=== PATIENT | female | born 1950 | race Caucasian/White ===

== ENCOUNTER 2018-07-09 10:44 | Emergency (ER) | payer MEDICARE, MEDICAID ==
--- NOTE | 2018-07-09 12:33 | ED Physician Chart ---
ED Chief Complaint/HPI - Patient Information Date Seen:: 07/09/18 Time Seen:: 11:26 Chief Complaint:: knot on right chest History of Present Illness:: knot on right chest s/p fall in shower when the shower chair broke 2 weeks ago. Allergies:: Allergies Allergy/AdvReac Type Severity Reaction Status Date / Time naproxen [From Naprosyn] Allergy Verified 07/09/18 11:23 Penicillins Allergy Verified 07/09/18 11:23 Vitals:: Vital Signs - 8 hr 07/09/18 11:26 Temp 97.9 F HR 63 RR 17 BP 141/42 O2 Sat % 98 Historian:: Patient Review:: Nurse's Note Reviewed, Transfer documents Reviewed ED Review of Systems - Review of Systems General/Constitutional: No fever, No chills, No weight loss, No weakness, No diaphoresis, No edema, No loss of appetite Skin: Bruising, Other (knot on right chest; RLE swelling and erythema.) Head: No headache, No light-headedness Eyes: No loss of vision, No pain, No diplopia ENT: No earache, No nasal drainage, No sore throat, No tinnitus Neck: No neck pain, No swelling, No thyromegaly, No stiffness, No mass noted Cardio Vascular: No chest pain, No palpitations, No PND, No orthopnea, No edema Pulmonary: No SOB, No cough, No sputum, No wheezing GI: No nausea, No vomiting, No diarrhea, No pain, No melena, No hematochezia, No constipation, No hematemesis G/U: No dysuria, No frequency, No hematuria Musculoskeletal: No bone or joint pain, No back pain, No muscle pain Endocrine: No polyuria, No polydipsia Psychiatric: No prior psych history, No depression, No anxiety, No suicidal ideation Hematopoietic: Bruising Allergic/Immuno: No urticaria, No angioedema Neurological: No syncope, No focal symptoms, No weakness, No paresthesia, No headache, No seizure, No dizziness, No confusion, No vertigo ED Past Medical History - Past Medical History Obtainable: No Past Medical History: HTN, DM, Arthritis, Other (cellulitis RLE) Family Medical History - Family Member Brother Ethnicity: Living Status: Still Living Hx Family Diabetes: Yes ED Physical Exam - Physical Examination General/Constitutional: Awake, Well-developed, well-nourished, Alert, No distress, GCS 15, Non-toxic appearing, Ambulatory Head: Atraumatic Eyes: Lids, conjuctiva normal, PERRL, EOMI Other Skin comments:: RLE with some erythema. BLE swelling (stable). Positive calf tenderness on the RLE. Positive RLE José Antonio's. 3+ BLE edema ENMT: External ears, nose nl Neck: Nontender, No nuchal rigidity, No stridor Respiratory: Nl effort/Exclusion, Clear to Auscultation, No Wheeze/Rhonchi/Rales Cardio Vascular: RRR, No murmur, gallop, rubs, NL S1 S2 GI: No tenderness/rebounding/guarding : No CVA tenderness Extremities: Full ROM Other Extremities comments:: RLE with some erythema. BLE swelling (stable). Positive calf tenderness on the RLE. Positive RLE José Antonio's. 3+ BLE edema Neuro/Psych: Alert/oriented, Normal sensory exam, Normal motor strength, Judgement/insight normal, Mood normal, No focal deficits Misc: Normal back, No paraspinal tenderness ED Assessment - Assessment General Assessment: right shoulder and right clavicle xrays read as negative. Vancomycin 1 gram IV given in ER and tolerated. No red man syndrome. Premedicated with Solumedrol 62.5 mg IV. case discussed with Dr. Keith who agreed with me that the patient could be sent back to the facility and maintained on Bactrim DS. ED Septic Shock - . Is Septic Shock (SBP<90, OR Lactate>4 mmol\L) present?: No - <6hrs of presentation: Vital Signs: Vital Signs - 8 hr 18 11:26 Temp 97.9 F HR 63 RR 17 BP 141/42 O2 Sat % 98 ED Reassessment (Disposition) - Reassessment Reassessment Condition:: Improved - Diagnosis Diagnosis:: Right chest hematoma (negative R shoulder and R clavicle xrays) RLE cellulitis (received IV Vancomycin--given prescription for Bactrim DS). - Aftercare/Follow up Instructions Aftercare/Follow-Up Instructions:: Refer to Discharge Instructions Medication Prescribed:: Bactrim DS 1 po bid # 20 - Patient Disposition Discharge/Transfer:: [facility] SNF Condition at Disposition:: Stable, Improved
[2018-07-09 13:01] LABS: LYMPHOCYTE ABSOLUTE 1.2 Th/cmm (1.5-3.0); MEAN PLATELET VOLUME 6.9 fl; MONOCYTE ABSOLUTE 0.3 Th/cmm (0.3-1.0); NEUTROPHILE ABSOLUTE 2.6 Th/cmm (1.8-8.0); WHITE BLOOD COUNT 4.1 Th/cmm (4.8-10.8)
[2018-07-09] MEDS ORDERED: methylPREDNISolone SS 40 mg Vial IVP ONE ×2 (13:02→17:00)
[2018-07-09 13:03] LABS: HEMATOCRIT 40.5 % (41.0-60); HEMOGLOBIN 13.3 gm/dL (12-16); RED BLOOD COUNT 4.92 Mil/cmm (3.80-5.20)
[2018-07-09 13:04] LABS: % LYMPHOCYTES 29.1 % (20.0-50.0); % MONOCYTES 7.6 % (2.0-10.0); % NEUTROPHILS 62.8 % (40.0-80.0); MEAN CELL VOLUME 82.3 fl (81-100); MEAN CORPUSCULAR HGB CONC 32.8 pg (28.0-36.0); PLATELET COUNT 178 Th/cmm (150-400); RED CELL DISTRIBUTION WIDTH 12.8 % (11.5-20.0)
[2018-07-09 13:05] LABS: % BASOPHILS 0.3 % (0.0-2.0); % EOSINOPHILS 0.2 % (0.0-5.0)
[2018-07-09 13:20] LABS: ANION GAP 13.6 (7.0-16.0); BUN - UREA NITROGEN 23 mg/dL (7-25); CALCIUM SERUM 9.8 mg/dL (8.6-10.3); CARBON DIOXIDE 25.7 mEq/L (21.0-31.0); CHLORIDE 102 mEq/L (98-107); CREATININE - SERUM 1.1 mg/dL (0.6-1.2); GFR AFRICAN-AMERICAN > 60.0 ml/min (>90); GFR NON AFRICAN-AMERICAN 52.5 ml/min; GLUCOSE 139 mg/dL (70-105); POTASSIUM SERUM 4.3 mEq/L (3.5-5.1); SODIUM SERUM 137 mEq/L (136-145)
--- NOTE | 2018-07-10 08:36 | Diagnostic Imaging Report ---
Right lower extremity Doppler venous ultrasound exam HISTORY: Pain/swelling Sonographic sector images were obtained through the deep venous systems of the right leg. Associated Doppler data was obtained. The exam demonstrates patency of the common femoral, superficial femoral, popliteal, and posterior tibial veins. Specifically, no thrombus is seen. There are normal compressibility and augmentation responses. IMPRESSION: Negative exam for deep vein thrombophlebitis.
--- NOTE | 2018-07-10 08:48 | Diagnostic Imaging Report ---
Right clavicle (2 views) HISTORY: Pain, trauma No acute bony abnormalities. No fractures. Degenerative hypertrophic bony change noted about the acromioclavicular joint. No dislocation. IMPRESSION: 1. No acute abnormalities 2. Degenerative changes about the acromioclavicular joint
--- NOTE | 2018-07-10 08:55 | Diagnostic Imaging Report ---
Right shoulder (4 views) HISTORY: Pain, trauma No acute bony abnormalities. No fractures. No dislocation. Mild degenerative changes seen about the acromioclavicular joint. IMPRESSION: 1. No acute abnormalities
== END 2018-07-09 15:15 | disposition home or self-care (01) ==
LOC: ER 10:44
DX: S20.211A Contusion of right front wall of thorax, initial encounter (principal); L03.115 Cellulitis of right lower limb; I10 Essential (primary) hypertension; E11.9 Type 2 diabetes mellitus without complications; M19.90 Unspecified osteoarthritis, unspecified site; Z88.0 Allergy status to penicillin; Z88.8 Allergy status to other drugs, medicaments and biological substances; W18.2XXA Fall in (into) shower or empty bathtub, initial encounter; Y93.89 Activity, other specified; Y92.89 Other specified places as the place of occurrence of the external cause; Y99.8 Other external cause status
CPT/HCPCS: 99284; 96365; 96375; 93971; 73000; 73030; 36415; 85025; 80048; 87040 ×2; J3370 ×2; J2930; Z7502

== ENCOUNTER 2018-07-20 19:47 | Inpatient (IN) | payer MEDICARE, MEDICAID ==
--- NOTE | 2018-07-20 20:14 | ED Physician Chart ---
ED Chief Complaint/HPI - Patient Information Date Seen:: 07/20/18 Time Seen:: 20:00 Chief Complaint:: cellulitis right leg History of Present Illness:: Patient's had cellulitis of the right leg last 3 months. She was admitted to [facility] in April for this cellulitis. No recent chills or fever. Patient had a deep vein thrombosis in the right leg 8 weeks ago. An ultrasound was done 10 days ago which showed that the deep vein thrombosis is no longer present. Allergies:: Allergies Allergy/AdvReac Type Severity Reaction Status Date / Time naproxen [From Naprosyn] Allergy Verified 07/09/18 11:23 Penicillins Allergy Verified 07/09/18 11:23 Historian:: Patient Review:: Nurse's Note Reviewed ED Review of Systems - Review of Systems General/Constitutional: No fever, No chills Skin: Skin lesions Head: No headache Eyes: No loss of vision ENT: No earache Neck: No neck pain Cardio Vascular: No chest pain, No palpitations Pulmonary: No SOB GI: No nausea, No diarrhea G/U: No dysuria Musculoskeletal: No bone or joint pain, No back pain, No muscle pain Endocrine: No polyuria, No polydipsia Psychiatric: No prior psych history Hematopoietic: No bruising Allergic/Immuno: No urticaria Neurological: No syncope, No focal symptoms ED Past Medical History - Past Medical History Past Medical History: HTN, DM, Other (borderline diabetes) Family History: HTN Social History: Non Smoker, No Alcohol Surgical History: Appendectomy, Hysterectomy, other (tonsillectomy; left knee) Psychiatricy History: None Medication: Reviewed Family Medical History - Family Member Brother Ethnicity: Living Status: Still Living Hx Family Diabetes: Yes ED Physical Exam - Physical Examination General/Constitutional: Awake, Well-developed, well-nourished, Alert, No distress Head: Atraumatic Eyes: Lids, conjuctiva normal, PERRL Skin: Well hydrated Other Skin comments:: Mild erythema distal third right lower leg ENMT: External ears, nose nl, TM canals nl, Nasal exam nl Other ENMT comments:: 2 out of 4 gum retraction Neck: No nuchal rigidity Respiratory: Nl effort/Exclusion, Clear to Auscultation, No Wheeze/Rhonchi/Rales Cardio Vascular: RRR, No murmur, gallop, rubs, NL S1 S2 GI: No tenderness/rebounding/guarding Other Extremities comments:: 2 out of 4 bilateral pretibial pitting edema Neuro/Psych: No focal deficits ED Labs/Radiology/EKG Results - Lab Results Results: Abnormal Lab Results 07/20/18 07/20/18 07/20/18 20:15 20:15 20:15 WBC 4.5 L RBC 4.75 Hgb 13.3 Hct 39.0 L MCV 82.1 MCH 28.0 MCHC Differential 34.0 RDW 13.1 Plt Count 176 MPV 7.2 Neutrophils % 60.1 Lymphocytes % 30.0 Monocytes % 9.5 Eosinophils % 0.2 Basophils % 0.2 PT 10.6 INR 1.02 PTT (Actin FS) 20.2 L Sodium 137 Potassium 4.9 Chloride 106 Carbon Dioxide 22.3 Anion Gap 13.6 BUN 32 H Creatinine 1.6 H Est GFR ( Amer) 41.2 Est GFR (Non-Af Amer) 34.1 BUN/Creatinine Ratio 20.0 Glucose 176 H Calcium 9.9 Total Bilirubin 0.3 AST 22 ALT 34 Alkaline Phosphatase 55 Total Protein 7.1 Albumin 4.2 Globulin 2.9 Albumin/Globulin Ratio 1.5 Abnormal Lab Results 07/20/18 07/20/18 07/20/18 20:15 20:15 20:15 WBC 4.5 L RBC 4.75 Hgb 13.3 Hct 39.0 L MCV 82.1 MCH 28.0 MCHC Differential 34.0 RDW 13.1 Plt Count 176 MPV 7.2 Neutrophils % 60.1 Lymphocytes % 30.0 Monocytes % 9.5 Eosinophils % 0.2 Basophils % 0.2 PT 10.6 INR 1.02 PTT (Actin FS) 20.2 L Sodium 137 Potassium 4.9 Chloride 106 Carbon Dioxide 22.3 Anion Gap 13.6 BUN 32 H Creatinine 1.6 H Est GFR ( Amer) 41.2 Est GFR (Non-Af Amer) 34.1 BUN/Creatinine Ratio 20.0 Glucose 176 H Calcium 9.9 Total Bilirubin 0.3 AST 22 ALT 34 Alkaline Phosphatase 55 Total Protein 7.1 Albumin 4.2 Globulin 2.9 Albumin/Globulin Ratio 1.5 ED Septic Shock - . Is Septic Shock (SBP<90, OR Lactate>4 mmol\L) present?: No ED Reassessment (Disposition) - Reassessment Reassessment Condition:: Unchanged - Diagnosis Diagnosis:: Cellulitis right lower leg; diabetes; hyperglycemia - Patient Disposition Admitted to:: Med/Surg Spoke to:: Debbie Fraser Admitting Medical Physician:: Debbie Fraser Condition at Disposition:: Stable
[2018-07-20 20:37] LABS: INR 1.02 (0.5-1.4); PROTHROMBIN TIME (TEST) 10.6 SECONDS (9.5-11.5)
[2018-07-20 20:39] LABS: % BASOPHILS 0.2 % (0.0-2.0); % EOSINOPHILS 0.2 % (0.0-5.0); % MONOCYTES 9.5 % (2.0-10.0); % NEUTROPHILS 60.1 % (40.0-80.0); HEMOGLOBIN 13.3 gm/dL (12-16); LYMPHOCYTE ABSOLUTE 1.4 Th/cmm (1.5-3.0); MEAN CELL VOLUME 82.1 fl (81-100); MEAN PLATELET VOLUME 7.2 fl; MONOCYTE ABSOLUTE 0.4 Th/cmm (0.3-1.0); NEUTROPHILE ABSOLUTE 2.7 Th/cmm (1.8-8.0); PLATELET COUNT 176 Th/cmm (150-400); RED BLOOD COUNT 4.75 Mil/cmm (3.80-5.20); RED CELL DISTRIBUTION WIDTH 13.1 % (11.5-20.0); WHITE BLOOD COUNT 4.5 Th/cmm (4.8-10.8)
[2018-07-20 20:41] LABS: ALB/GLOB RATIO 1.5 (1.0-1.8); ALBUMIN 4.2 gm/dL (3.7-5.3); ANION GAP 13.6 (7.0-16.0); BILIRUBIN,TOTAL 0.3 mg/dL (0.3-1.0); CALCIUM SERUM 9.9 mg/dL (8.6-10.3); CARBON DIOXIDE 22.3 mEq/L (21.0-31.0); CREATININE - SERUM 1.6 mg/dL (0.6-1.2); GFR AFRICAN-AMERICAN 41.2 ml/min (>90); GFR NON AFRICAN-AMERICAN 34.1 ml/min; POTASSIUM SERUM 4.9 mEq/L (3.5-5.1); TOTAL PROTEIN,SERUM 7.1 gm/dL (6.0-8.3)
[2018-07-20] MEDS ORDERED: Sodium Chloride 0.9% 1,000 ML IV ONE (22:09)
[2018-07-21 03:20] VITALS: BP 102/48
[2018-07-21 08:01] LABS: % BASOPHILS 0.1 % (0.0-2.0); % EOSINOPHILS 0.3 % (0.0-5.0); % LYMPHOCYTES 25.8 % (20.0-50.0); % MONOCYTES 9.5 % (2.0-10.0); % NEUTROPHILS 64.3 % (40.0-80.0); HEMATOCRIT 35.2 % (41.0-60); HEMOGLOBIN 11.7 gm/dL (12-16); MEAN CELL VOLUME 83.1 fl (81-100); MEAN CORPUSCULAR HEMOGLOBIN 27.6 pg (27.0-31.0); MEAN CORPUSCULAR HGB CONC 33.2 pg (28.0-36.0); MEAN PLATELET VOLUME 6.8 fl; MONOCYTE ABSOLUTE 0.4 Th/cmm (0.3-1.0); NEUTROPHILE ABSOLUTE 2.3 Th/cmm (1.8-8.0); PLATELET COUNT 153 Th/cmm (150-400); RED BLOOD COUNT 4.24 Mil/cmm (3.80-5.20); RED CELL DISTRIBUTION WIDTH 12.9 % (11.5-20.0)
[2018-07-21 08:09] LABS: INR 0.99 (0.5-1.4); PROTHROMBIN TIME (TEST) 10.3 SECONDS (9.5-11.5)
[2018-07-21 08:13] LABS: ANION GAP 10.5 (7.0-16.0); CARBON DIOXIDE 22.7 mEq/L (21.0-31.0); CREATININE - SERUM 1.3 mg/dL (0.6-1.2); GFR AFRICAN-AMERICAN 52.4 ml/min (>90); GFR NON AFRICAN-AMERICAN 43.3 ml/min; POTASSIUM SERUM 5.2 mEq/L (3.5-5.1)
[2018-07-21 08:14] LABS: WHITE BLOOD COUNT 3.7 Th/cmm (4.8-10.8)
[2018-07-21] MEDS ORDERED: VTE Chemical Prophylaxis Screen/Admission MC PRN (10:41)
[2018-07-21] MEDS ORDERED: Levofloxacin IVPB 750mg/150mL Premix Bag IV SCH (15:00)
[2018-07-21] MEDS: Levothyroxine 0.075 Mg Tab PO SCH (17:01)
--- NOTE | 2018-07-21 20:03 | Consultation ---
DATE OF CONSULTATION: 07/21/2018 HEMATOLOGY ONCOLOGY CONSULTATION REFERRING PHYSICIAN: Dr. Fraser. REASON FOR CONSULTATION: Leukopenia. HISTORY OF PRESENT ILLNESS: The patient is a 67-year-old female who was admitted with right leg pain and was found to have cellulitis, started on antibiotics and she was also found to have low white count, therefore, I was asked to evaluate. The patient was recently diagnosed with deep venous thrombosis 6 weeks ago. Apparently, she was started on Lovenox injections in the facility and repeat ultrasound 10 days ago was negative. Repeat ultrasound in our facility was also negative. There are no old records to compare with, with regards to the low white count, and it is unclear how long her leukopenia has been existing. PAST OBSTETRIC HISTORY: Obesity, hypertension, and diabetes. FAMILY HISTORY: Hypertension. SOCIAL HISTORY: Nonsmoker. PAST SURGICAL HISTORY: Appendectomy and hysterectomy. MEDICATIONS: Reviewed. CURRENT MEDICATIONS: Heparin subcutaneous prophylactic dose q.12h., vancomycin, and Synthroid 75 mcg. LABORATORY DATA: White count 3.7, hemoglobin 11.7, platelets 153 with normal differential count. Creatinine 1.3. Liver functions normal. TSH 11.1. PHYSICAL EXAMINATION: GENERAL: The patient is obese. VITAL SIGNS: Stable. NECK: No peripheral lymphadenopathy. CHEST: Good air entry. ABDOMEN: Obese and soft. EXTREMITIES: Edema both lower extremities with erythema in the gris-ankle area and below the knee, more on the right side than left. ASSESSMENT: Leukopenia of unknown duration, could be from B12 or folate deficiency, could be autoimmune, and could be a splenic sequestration. Therefore, I will obtain spleen ultrasound, B12, and folate level, RUPESH with reflex. If the patient is not neutropenic since the neutrophil count is 64%, no intervention is required. I will continue to monitor along with you. Other possibilities are also drug-induced leukopenia from antibiotics. Thank you for the opportunity to participate in the care of this interesting case for you. JOB# [id number]
--- NOTE | 2018-07-21 22:18 | History & Physical ---
ADMIT DATE: 07/21/2018 HISTORY OF PRESENT ILLNESS: The patient is a very well known to me 67-year-old female patient known from [facility]. The patient has history of recurrent cellulitis this time, bilateral leg swelling, and the patient has gained weight in the last 2 months. The patient was treated with Lovenox for DVT of her right leg. The patient apparently had been bruising all over the body. PAST MEDICAL HISTORY: The patient has history of hypertension, diabetes and obesity, sleep apnea. PAST SURGICAL HISTORY: History of tonsillectomy, appendectomy, and hysterectomy. REVIEW OF SYSTEMS: Essentially negative. PHYSICAL EXAMINATION: HEAD: Normal. ENT: Normal. LUNGS: Bilateral rales. CARDIOVASCULAR SYSTEM: S1, S2 heard. EXTREMITIES: Bilateral lower leg swelling as well as tenderness and erythema of the right lower leg. LABORATORY DATA: The patient's white count actually was low at 4.3, hemoglobin 13.3. DIAGNOSES: Severe right leg cellulitis, rule out sepsis, status post history of right deep venous thrombosis, history of severe weight gain recently, hypothyroidism, diabetes, hyperglycemia, and also bruising secondary to Lovenox was made. PLAN: The patient is being admitted and I will go ahead and do a complete workup including coagulation series and will have Dr. Narvaez see the patient and also Infectious Disease, Dr. Daniel Keith see the patient, and I will do a cardiac workup as well. JOB# [id number]
--- NOTE | 2018-07-21 23:30 | Consultation ---
DATE OF CONSULTATION: 07/21/[address] Fraser. HISTORY OF PRESENT ILLNESS: This is a 67-year-old morbidly obese female patient who has been complaining of pain and tenderness in the right leg. The patient was seen in the Emergency Room with cellulitis of the right lower extremity. According to the patient, the patient also had a DVT with anticoagulation. At the present time, the patient has a no DVT with recent venous duplex study. PAST MEDICAL HISTORY: The patient has a right leg cellulitis, hypertension, B12 deficiency, osteoarthritis, hypothyroidism, morbid obesity, appendectomy, tonsillectomy, knee surgery, and hysterectomy. FAMILY HISTORY: Unremarkable. SOCIAL HISTORY: No history of smoking, alcohol abuse. ALLERGIES: No known allergies. PHYSICAL EXAMINATION: VITAL SIGNS: Blood pressure 130/80, pulse 70, and respirations 20. HEAD: Normocephalic. No lumps or bumps. EYES: Pupils equal, reactive to light. Fundi show AV nicking, sclerae white, conjunctivae pink. NECK: Carotid 2+. Normal upstroke. JVD flat. Thyroid not palpable. Lymph nodes not palpable. CHEST: Shows increased AP diameter. No kyphosis, scoliosis. LUNGS: Bilateral bronchovesicular breath sounds. HEART: PMI fifth intercostal space with lateral to midclavicular line. S1, S2. No S3, S4, soft systolic murmur. ABDOMEN: Soft. Liver, spleen not palpable. No organomegaly. Bowel sounds active. NEUROLOGIC: Unremarkable. EXTREMITIES: Pain, tenderness, and swelling of the right lower extremity. CLINICAL IMPRESSION: 1. Cellulitis of the right lower extremity. 2. Hypertension. 3. B12 deficiency. 4. Osteoarthritis. 5. Hypothyroidism. 6. Obesity. 7. Megaloblastic anemia. PLAN: The patient took IV antibiotics. Control the blood pressure. JOB# [id number]
--- NOTE | 2018-07-22 00:54 | Consultation ---
DATE OF CONSULTATION: 07/21/2018 INFECTIOUS DISEASE CONSULTATION REFERRING PHYSICIAN: Miller Fraser M.D. REASON FOR CONSULTATION: Right leg cellulitis. HISTORY OF PRESENT ILLNESS: The patient is a 67-year-old female with past medical history of hypertension, diabetes mellitus type 2, DVT, recently admitted to the ____ [facility] for cellulitis of right leg 3 months ago. The patient was treated and diagnosed to have DVT in right leg. However, the patient has erythema and swelling of the right leg. She came to the ER for further evaluation and management. On initial evaluation, the patient's temperature was 97.6 degree Fahrenheit. The patient was diagnosed with cellulitis again and started on Levaquin and vancomycin. ID consult was called for antibiotic management. PAST MEDICAL HISTORY: Includes hypertension, diabetes mellitus type 2, and DVT. MEDICATIONS: As per medication reconciliation sheet. The patient is currently receiving vancomycin. ALLERGIES: THE PATIENT IS ALLERGIC TO PENICILLIN AND NAPROSYN. SOCIAL HISTORY: The patient lives in a nursing facility. No history of smoking, alcohol, or drug use. FAMILY HISTORY: Hypertension. REVIEW OF SYSTEMS: GENERAL: The patient denies any fever or chills. HEENT: No diplopia, no photophobia, no sore throat. RESPIRATORY: No cough, no shortness of breath. CARDIOVASCULAR: No chest pain or palpitation. GASTROINTESTINAL: No nausea, no vomiting, no diarrhea, no constipation. MUSCULOSKELETAL: The patient has swelling of the right leg was on the posterior aspect of the right leg. There is mild erythema. NEUROLOGIC: No headache, no dizziness, no focal weakness. PHYSICAL EXAMINATION: VITAL SIGNS: Current vital signs shows temperature is 98.2, pulse is 67, respirations 17, and blood pressure is 124/65. GENERAL: The patient is comfortable, lying in bed, in no acute distress. HEENT: Head is normocephalic, atraumatic. Oral cavity moist, pink tongue. NECK: Supple. No JVD. No carotid bruit. Trachea midline. CHEST: Bilateral breath sounds. No crackles or wheezing. HEART: S1, S2 within normal limits. Regular rhythm. No murmur, no gallop. ABDOMEN: Soft, nontender, and nondistended. Bowel sounds present. EXTREMITIES: No cyanosis. No edema. The patient has mild erythema, swelling posteriorly. NEUROLOGIC: She is alert, awake, and oriented x 3. No focal deficit. LABORATORY DATA: Current labs show WBC count is 3700, hemoglobin is 11.7, hematocrit is 34.2, platelets are 153,000, neutrophils 64.2%. Sodium is 138, potassium is 5.2, chloride is 110, bicarbonate is 22.7, BUN is 31, creatinine is 1.3, and glucose is 147. IMPRESSION: 1. Right leg cellulitis. 2. History of deep venous thrombosis. 3. Obesity. 4. Diabetes mellitus type 2. 5. Hypertension. RECOMMENDATIONS: Continue vancomycin. Discontinue Levaquin. Thank you, Dr. Fraser, for involving me in taking care of this patient. JOB# [id number]
[2018-07-22 07:33] LABS: % EOSINOPHILS 0.1 % (0.0-5.0); % LYMPHOCYTES 24.9 % (20.0-50.0); % MONOCYTES 9.3 % (2.0-10.0); % NEUTROPHILS 65.7 % (40.0-80.0); HEMATOCRIT 34.8 % (41.0-60); HEMOGLOBIN 11.7 gm/dL (12-16); LYMPHOCYTE ABSOLUTE 0.7 Th/cmm (1.5-3.0); MEAN CELL VOLUME 81.8 fl (81-100); MEAN CORPUSCULAR HEMOGLOBIN 27.5 pg (27.0-31.0); MEAN CORPUSCULAR HGB CONC 33.6 pg (28.0-36.0); MONOCYTE ABSOLUTE 0.3 Th/cmm (0.3-1.0); PLATELET COUNT 141 Th/cmm (150-400); RED BLOOD COUNT 4.26 Mil/cmm (3.80-5.20); RED CELL DISTRIBUTION WIDTH 12.8 % (11.5-20.0)
[2018-07-22] MEDS: Levothyroxine 0.075 Mg Tab PO SCH (07:54)
[2018-07-22 07:56] LABS: ANION GAP 10.2 (7.0-16.0); BUN - UREA NITROGEN 25 mg/dL (7-25); CARBON DIOXIDE 24.9 mEq/L (21.0-31.0); CHLORIDE 109 mEq/L (98-107); GLUCOSE 150 mg/dL (70-105); POTASSIUM SERUM 5.1 mEq/L (3.5-5.1); SODIUM SERUM 139 mEq/L (136-145)
[2018-07-22] MEDS ORDERED: Probiotic Screen MC PRN (09:45)
[2018-07-22 13:14] LABS: CREATININE - SERUM 0.9 mg/dL (0.6-1.2); GFR AFRICAN-AMERICAN > 60.0 ml/min (>90); GFR NON AFRICAN-AMERICAN > 60.0 ml/min
[2018-07-22] MEDS: Lactobacillus Rhamnosus GG 15 Billion CFU CAP.SPRINK PO SCH (13:19)
--- NOTE | 2018-07-22 15:42 | General Progress Note ---
Subjective - Review of Systems Service Date: 07/22/18 Objective - Results Result Diagrams: 07/22/18 07:10 07/22/18 07:10 Recent Labs: Laboratory Last Values WBC 3.0 Th/cmm (4.8-10.8) L 07/22/18 07:10 RBC 4.26 Mil/cmm (3.80-5.20) 07/22/18 07:10 Hgb 11.7 gm/dL (12-16) L 07/22/18 07:10 Hct 34.8 % (41.0-60) L 07/22/18 07:10 MCV 81.8 fl (81-100) 07/22/18 07:10 MCH 27.5 pg (27.0-31.0) 07/22/18 07:10 MCHC Differential 33.6 pg (28.0-36.0) 07/22/18 07:10 RDW 12.8 % (11.5-20.0) 07/22/18 07:10 Plt Count 141 Th/cmm (150-400) L 07/22/18 07:10 MPV 7.0 fl 07/22/18 07:10 Neutrophils % 65.7 % (40.0-80.0) 07/22/18 07:10 Lymphocytes % 24.9 % (20.0-50.0) 07/22/18 07:10 Monocytes % 9.3 % (2.0-10.0) 07/22/18 07:10 Eosinophils % 0.1 % (0.0-5.0) 07/22/18 07:10 Basophils % 0.0 % (0.0-2.0) 07/22/18 07:10 PT 10.3 SECONDS (9.5-11.5) 07/21/18 07:50 INR 0.99 (0.5-1.4) 07/21/18 07:50 PTT (Actin FS) 31.9 SECONDS (26.0-38.0) 07/21/18 07:50 Sodium 139 mEq/L (136-145) 07/22/18 07:10 Potassium 5.1 mEq/L (3.5-5.1) 07/22/18 07:10 Chloride 109 mEq/L (98-107) H 07/22/18 07:10 Carbon Dioxide 24.9 mEq/L (21.0-31.0) 07/22/18 07:10 Anion Gap 10.2 (7.0-16.0) 07/22/18 07:10 BUN 25 mg/dL (7-25) 07/22/18 07:10 Creatinine 0.9 mg/dL (0.6-1.2) 07/22/18 07:10 Est GFR ( Amer) > 60.0 ml/min (>90) 07/22/18 07:10 Est GFR (Non-Af Amer) > 60.0 ml/min 07/22/18 07:10 BUN/Creatinine Ratio 27.8 07/22/18 07:10 Glucose 150 mg/dL (70-105) H 07/22/18 07:10 Calcium 9.0 mg/dL (8.6-10.3) 07/22/18 07:10 Total Bilirubin 0.3 mg/dL (0.3-1.0) 07/20/18 20:15 AST 22 U/L (13-39) 07/20/18 20:15 ALT 34 U/L (7-52) 07/20/18 20:15 Alkaline Phosphatase 55 U/L (34-104) 07/20/18 20:15 B-Natriuretic Peptide 7.2 pg/mL (5.0-100.0) 07/21/18 07:50 Total Protein 7.1 gm/dL (6.0-8.3) 07/20/18 20:15 Albumin 4.2 gm/dL (3.7-5.3) 07/20/18 20:15 Globulin 2.9 gm/dL 07/20/18 20:15 Albumin/Globulin Ratio 1.5 (1.0-1.8) 07/20/18 20:15 TSH 11.12 uIU/ml (0.34-5.60) H 07/21/18 07:50 - Physical Exam Vitals and I&O: Vital Signs Temp 97.0 F 07/22/18 11:47 Pulse 65 07/22/18 11:47 Resp 17 07/22/18 11:47 BP 110/53 07/22/18 11:47 Pulse Ox 100 07/22/18 11:47 Intake & Output 07/21/18 07/22/18 07/22/18 18:59 06:59 18:59 Intake Total 2300 50 Balance 2300 50 Weight (lbs) 125.328 kg 127.006 kg 127.006 kg Intake: Intake, IV Amount 500 Vancomycin HCl 2 gm In 500 Sodium Chloride 0.9% 500 ml @ 250 mls/hr IV Q24H [facility] Rx#:[id number] Oral 1800 50 Other: # Voids 3 3 # Bowel Movements 1 0 Weight Source Bedscale Bedscale Bedscale Active Medications: Current Medications Heparin Sodium (Porcine) (Heparin) 5,000 units SUBQ Q12H [facility] Stop: 09/19/18 11:59 Last Admin: 07/22/18 13:01 Dose: 5,000 units Vancomycin HCl 2 gm/ Sodium (Chloride) 500 mls @ 250 mls/hr IV Q24H [facility] Stop: 09/19/18 13:59 Last Admin: 07/22/18 14:42 Dose: 250 mls/hr Lactobacillus Rhamnosus (Culturelle 15b) 1 each PO DAILY [facility] Stop: 09/20/18 13:59 Last Admin: 07/22/18 13:19 Dose: 1 each Levothyroxine Sodium (Synthroid) 0.075 mg PO QDAC [facility] Stop: 09/19/18 16:29 Last Admin: 07/22/18 07:54 Dose: Not Given Miscellaneous (Vancomycin Iv Per Pharmacy) 1 ea PRN PRN PRN Reason: PROTOCOL Stop: 09/19/18 07:37 Miscellaneous ([employer] Prophylaxis Screen/ Admission) 1 ea PRN PRN PRN Reason: PROTOCOL Stop: 09/19/18 10:40 Miscellaneous (Clinical Monitoring) 1 ea PRN PRN PRN Reason: RENAL DOSE Stop: 09/19/18 14:24 Miscellaneous (Probiotic Screen) 1 ea PRN PRN PRN Reason: PROTOCOL Stop: 09/20/18 09:44 Temazepam (Restoril) 15 mg PO HS [facility]; Protocol Stop: 09/19/18 20:59 Last Admin: 07/21/18 21:04 Dose: Not Given Assessment/Plan - Assessment Assessment: Leukopenia of unknown duration, could be from B12 or folate deficiency, could be autoimmune, and could be a splenic sequestration. Therefore, I will obtain spleen ultrasound, B12, and folate level, RUPESH with reflex. If the patient is not neutropenic since the neutrophil count is 64%, no intervention is required. I will continue to monitor along with you. Other possibilities are also drug-induced leukopenia from antibiotics. 07/22: US pending. pancytopenia post underway.
--- NOTE | 2018-07-22 17:28 | Infectious Disease Prog Note ---
Infectious Disease Subjective - Review of Systems Service Date: 07/22/18 Subjective: There is no new change, no fever. Infectious Disease Objective - Results Result Diagrams: 07/22/18 07:10 07/22/18 07:10 Recent Labs: Laboratory Last Values WBC 3.0 Th/cmm (4.8-10.8) L 07/22/18 07:10 RBC 4.26 Mil/cmm (3.80-5.20) 07/22/18 07:10 Hgb 11.7 gm/dL (12-16) L 07/22/18 07:10 Hct 34.8 % (41.0-60) L 07/22/18 07:10 MCV 81.8 fl (81-100) 07/22/18 07:10 MCH 27.5 pg (27.0-31.0) 07/22/18 07:10 MCHC Differential 33.6 pg (28.0-36.0) 07/22/18 07:10 RDW 12.8 % (11.5-20.0) 07/22/18 07:10 Plt Count 141 Th/cmm (150-400) L 07/22/18 07:10 MPV 7.0 fl 07/22/18 07:10 Neutrophils % 65.7 % (40.0-80.0) 07/22/18 07:10 Lymphocytes % 24.9 % (20.0-50.0) 07/22/18 07:10 Monocytes % 9.3 % (2.0-10.0) 07/22/18 07:10 Eosinophils % 0.1 % (0.0-5.0) 07/22/18 07:10 Basophils % 0.0 % (0.0-2.0) 07/22/18 07:10 PT 10.3 SECONDS (9.5-11.5) 07/21/18 07:50 INR 0.99 (0.5-1.4) 07/21/18 07:50 PTT (Actin FS) 31.9 SECONDS (26.0-38.0) 07/21/18 07:50 Sodium 139 mEq/L (136-145) 07/22/18 07:10 Potassium 5.1 mEq/L (3.5-5.1) 07/22/18 07:10 Chloride 109 mEq/L (98-107) H 12/29/18 07:10 Carbon Dioxide 24.9 mEq/L (21.0-31.0) 07/22/18 07:10 Anion Gap 10.2 (7.0-16.0) 07/22/18 07:10 BUN 25 mg/dL (7-25) 07/22/18 07:10 Creatinine 0.9 mg/dL (0.6-1.2) 07/22/18 07:10 Est GFR ( Amer) > 60.0 ml/min (>90) 07/22/18 07:10 Est GFR (Non-Af Amer) > 60.0 ml/min 07/22/18 07:10 BUN/Creatinine Ratio 27.8 07/22/18 07:10 Glucose 150 mg/dL (70-105) H 07/22/18 07:10 Calcium 9.0 mg/dL (8.6-10.3) 07/22/18 07:10 Total Bilirubin 0.3 mg/dL (0.3-1.0) 07/20/18 20:15 AST 22 U/L (13-39) 07/20/18 20:15 ALT 34 U/L (7-52) 07/20/18 20:15 Alkaline Phosphatase 55 U/L (34-104) 07/20/18 20:15 B-Natriuretic Peptide 7.2 pg/mL (5.0-100.0) 07/21/18 07:50 Total Protein 7.1 gm/dL (6.0-8.3) 07/20/18 20:15 Albumin 4.2 gm/dL (3.7-5.3) 07/20/18 20:15 Globulin 2.9 gm/dL 07/20/18 20:15 Albumin/Globulin Ratio 1.5 (1.0-1.8) 07/20/18 20:15 TSH 11.12 uIU/ml (0.34-5.60) H 07/21/18 07:50 - Physical Exam Vitals and I&O: Vital Signs Temp 97.2 F 07/22/18 15:39 Pulse 67 07/22/18 15:39 Resp 17 07/22/18 15:39 BP 107/51 07/22/18 15:39 Pulse Ox 100 12/29/18 15:39 Intake & Output 07/21/18 07/22/18 07/22/18 18:59 06:59 18:59 Intake Total 2300 50 Balance 2300 50 Weight (lbs) 125.328 kg 127.006 kg 127.006 kg Intake: Intake, IV Amount 500 Vancomycin HCl 2 gm In 500 Sodium Chloride 0.9% 500 ml @ 250 mls/hr IV Q24H [facility] Rx#:[id number] Oral 1800 50 Other: # Voids 3 3 # Bowel Movements 1 0 Weight Source Bedscale Bedscale Bedscale Active Medications: Current Medications Heparin Sodium (Porcine) (Heparin) 5,000 units SUBQ Q12H [facility] Stop: 09/19/18 11:59 Last Admin: 07/22/18 13:01 Dose: 5,000 units Vancomycin HCl 2 gm/ Sodium (Chloride) 500 mls @ 250 mls/hr IV Q24H [facility] Stop: 09/19/18 13:59 Last Admin: 07/22/18 14:42 Dose: 250 mls/hr Lactobacillus Rhamnosus (Culturelle 15b) 1 each PO DAILY [facility] Stop: 09/20/18 13:59 Last Admin: 07/22/18 13:19 Dose: 1 each Levothyroxine Sodium (Synthroid) 0.075 mg PO QDAC [facility] Stop: 09/19/18 16:29 Last Admin: 07/22/18 07:54 Dose: Not Given Miscellaneous (Vancomycin Iv Per Pharmacy) 1 ea PRN PRN PRN Reason: PROTOCOL Stop: 09/19/18 07:37 Miscellaneous (Vte Chemical Prophylaxis Screen/ Admission) 1 ea [facility] PRN PRN PRN Reason: PROTOCOL Stop: 09/19/18 10:40 Miscellaneous (Clinical Monitoring) 1 ea PRN PRN PRN Reason: RENAL DOSE Stop: 09/19/18 14:24 Miscellaneous (Probiotic Screen) 1 ea PRN PRN PRN Reason: PROTOCOL Stop: 09/20/18 09:44 Temazepam (Restoril) 15 mg PO HS [facility]; Protocol Stop: 09/19/18 20:59 Last Admin: 07/21/18 21:04 Dose: Not Given General: no acute distress, well developed, well nourished HEENT: atraumatic, normocephalic, PERRLA Neck: supple, no thyromegaly Cardiovascular: S1S2, regular Lungs: clear to auscultation bilaterally, clear to percussion Abdomen: soft, no tender, no distended, no rebound Extremities: other (swelling and redness of the posterior aspect of the right leg.), no cyanosis, no clubbing, no edema Neurological: awake, alert, oriented Skin: intact Infectious Disease Assmt/Plan - Assessment Assessment: 1. Right leg cellulitis. 2. History of deep venous thrombosis. 3. Obesity. 4. Diabetes mellitus type 2. 5. Hypertension. - Plan Plan: Continue VancO IV at this time.
--- NOTE | 2018-07-22 17:44 | General Progress Note ---
Subjective - Review of Systems Service Date: 07/22/18 Objective - Results Result Diagrams: 07/22/18 07:10 07/22/18 07:10 Recent Labs: Laboratory Last Values WBC 3.0 Th/cmm (4.8-10.8) L 07/22/18 07:10 RBC 4.26 Mil/cmm (3.80-5.20) 07/22/18 07:10 Hgb 11.7 gm/dL (12-16) L 07/22/18 07:10 Hct 34.8 % (41.0-60) L 07/22/18 07:10 MCV 81.8 fl (81-100) 07/22/18 07:10 MCH 27.5 pg (27.0-31.0) 07/22/18 07:10 MCHC Differential 33.6 pg (28.0-36.0) 07/22/18 07:10 RDW 12.8 % (11.5-20.0) 07/22/18 07:10 Plt Count 141 Th/cmm (150-400) L 07/22/18 07:10 MPV 7.0 fl 07/22/18 07:10 Neutrophils % 65.7 % (40.0-80.0) 07/22/18 07:10 Lymphocytes % 24.9 % (20.0-50.0) 07/22/18 07:10 Monocytes % 9.3 % (2.0-10.0) 07/22/18 07:10 Eosinophils % 0.1 % (0.0-5.0) 07/22/18 07:10 Basophils % 0.0 % (0.0-2.0) 07/22/18 07:10 PT 10.3 SECONDS (9.5-11.5) 07/21/18 07:50 INR 0.99 (0.5-1.4) 07/21/18 07:50 PTT (Actin FS) 31.9 SECONDS (26.0-38.0) 07/21/18 07:50 Sodium 139 mEq/L (136-145) 07/22/18 07:10 Potassium 5.1 mEq/L (3.5-5.1) 07/22/18 07:10 Chloride 109 mEq/L (98-107) H 07/22/18 07:10 Carbon Dioxide 24.9 mEq/L (21.0-31.0) 07/22/18 07:10 Anion Gap 10.2 (7.0-16.0) 07/22/18 07:10 BUN 25 mg/dL (7-25) 07/22/18 07:10 Creatinine 0.9 mg/dL (0.6-1.2) 07/22/18 07:10 Est GFR ( Amer) > 60.0 ml/min (>90) 07/22/18 07:10 Est GFR (Non-Af Amer) > 60.0 ml/min 07/22/18 07:10 BUN/Creatinine Ratio 27.8 07/22/18 07:10 Glucose 150 mg/dL (70-105) H 07/22/18 07:10 Calcium 9.0 mg/dL (8.6-10.3) 07/22/18 07:10 Total Bilirubin 0.3 mg/dL (0.3-1.0) 07/20/18 20:15 AST 22 U/L (13-39) 07/20/18 20:15 ALT 34 U/L (7-52) 07/20/18 20:15 Alkaline Phosphatase 55 U/L (34-104) 07/20/18 20:15 B-Natriuretic Peptide 7.2 pg/mL (5.0-100.0) 07/21/18 07:50 Total Protein 7.1 gm/dL (6.0-8.3) 07/20/18 20:15 Albumin 4.2 gm/dL (3.7-5.3) 07/20/18 20:15 Globulin 2.9 gm/dL 07/20/18 20:15 Albumin/Globulin Ratio 1.5 (1.0-1.8) 07/20/18 20:15 TSH 11.12 uIU/ml (0.34-5.60) H 07/21/18 07:50 - Physical Exam Vitals and I&O: Vital Signs Temp 97.2 F 07/22/18 15:39 Pulse 67 07/22/18 15:39 Resp 17 07/22/18 15:39 BP 107/51 07/22/18 15:39 Pulse Ox 100 07/22/18 15:39 Intake & Output 07/21/18 07/22/18 07/22/18 18:59 06:59 18:59 Intake Total 2300 50 Balance 2300 50 Weight (lbs) 125.328 kg 127.006 kg 127.006 kg Intake: Intake, IV Amount 500 Vancomycin HCl 2 gm In 500 Sodium Chloride 0.9% 500 ml @ 250 mls/hr IV Q24H [facility] Rx#:[id number] Oral 1800 50 Other: # Voids 3 3 # Bowel Movements 1 0 Weight Source Bedscale Bedscale Bedscale Active Medications: Current Medications Heparin Sodium (Porcine) (Heparin) 5,000 units SUBQ Q12H [facility] Stop: 09/19/18 11:59 Last Admin: 07/22/18 13:01 Dose: 5,000 units Vancomycin HCl 2 gm/ Sodium (Chloride) 500 mls @ 250 mls/hr IV Q24H [facility] Stop: 09/19/18 13:59 Last Admin: 07/22/18 14:42 Dose: 250 mls/hr Lactobacillus Rhamnosus (Culturelle 15b) 1 each PO DAILY [facility] Stop: 09/20/18 13:59 Last Admin: 07/22/18 13:19 Dose: 1 each Levothyroxine Sodium (Synthroid) 0.075 mg PO QDAC [facility] Stop: 09/19/18 16:29 Last Admin: 07/22/18 07:54 Dose: Not Given Miscellaneous (Vancomycin Iv Per Pharmacy) 1 ea MC PRN PRN PRN Reason: PROTOCOL Stop: 09/19/18 07:37 Miscellaneous (Vte Chemical Prophylaxis Screen/ Admission) 1 ea MC PRN PRN PRN Reason: PROTOCOL Stop: 09/19/18 10:40 Miscellaneous (Clinical Monitoring) 1 ea MC PRN PRN PRN Reason: RENAL DOSE Stop: 09/19/18 14:24 Miscellaneous (Probiotic Screen) 1 ea MC PRN PRN PRN Reason: PROTOCOL Stop: 09/20/18 09:44 Temazepam (Restoril) 15 mg PO HS [facility]; Protocol Stop: 09/19/18 20:59 Last Admin: 07/21/18 21:04 Dose: Not Given
[2018-07-23] MEDS: Levothyroxine 0.075 Mg Tab PO SCH (07:41)
--- NOTE | 2018-07-23 09:45 | Diagnostic Imaging Report ---
Exam: Ultrasound examination of the abdomen. HISTORY: Splenomegaly. Findings: Real-time ultrasound summation abdomen performed multiple planes. The study demonstrates a normal appearance of liver parenchyma and spleen. The gallbladder contains calculi consistent with cholelithiasis. Common bile duct measures 3 mm. The pancreas is not seen. There is no evidence of obstructive uropathy or nephrolithiasis. The spleen is enlarged at 15 cm stent consistent with splenomegaly. No free fluid is noted IMPRESSION Cholelithiasis Splenomegaly.
[2018-07-23] MEDS: Lactobacillus Rhamnosus GG 15 Billion CFU CAP.SPRINK PO SCH (13:36)
--- NOTE | 2018-07-23 16:48 | General Progress Note ---
Subjective - Review of Systems Service Date: 07/23/18 Objective - Results Result Diagrams: 07/22/18 07:10 07/22/18 07:10 Recent Labs: Laboratory Last Values WBC 3.0 Th/cmm (4.8-10.8) L 07/22/18 07:10 RBC 4.26 Mil/cmm (3.80-5.20) 07/22/18 07:10 Hgb 11.7 gm/dL (12-16) L 07/22/18 07:10 Hct 34.8 % (41.0-60) L 07/22/18 07:10 MCV 81.8 fl (81-100) 07/22/18 07:10 MCH 27.5 pg (27.0-31.0) 07/22/18 07:10 MCHC Differential 33.6 pg (28.0-36.0) 07/22/18 07:10 RDW 12.8 % (11.5-20.0) 07/22/18 07:10 Plt Count 141 Th/cmm (150-400) L 07/22/18 07:10 MPV 7.0 fl 07/22/18 07:10 Neutrophils % 65.7 % (40.0-80.0) 07/22/18 07:10 Lymphocytes % 24.9 % (20.0-50.0) 07/22/18 07:10 Monocytes % 9.3 % (2.0-10.0) 07/22/18 07:10 Eosinophils % 0.1 % (0.0-5.0) 07/22/18 07:10 Basophils % 0.0 % (0.0-2.0) 07/22/18 07:10 PT 10.3 SECONDS (9.5-11.5) 07/21/18 07:50 INR 0.99 (0.5-1.4) 07/21/18 07:50 PTT (Actin FS) 31.9 SECONDS (26.0-38.0) 07/21/18 07:50 Sodium 139 mEq/L (136-145) 07/22/18 07:10 Potassium 5.1 mEq/L (3.5-5.1) 07/22/18 07:10 Chloride 109 mEq/L (98-107) H 07/22/18 07:10 Carbon Dioxide 24.9 mEq/L (21.0-31.0) 07/22/18 07:10 Anion Gap 10.2 (7.0-16.0) 07/22/18 07:10 BUN 25 mg/dL (7-25) 07/22/18 07:10 Creatinine 0.9 mg/dL (0.6-1.2) 07/22/18 07:10 Est GFR ( Amer) > 60.0 ml/min (>90) 07/22/18 07:10 Est GFR (Non-Af Amer) > 60.0 ml/min 07/22/18 07:10 BUN/Creatinine Ratio 27.8 07/22/18 07:10 Glucose 150 mg/dL (70-105) H 07/22/18 07:10 Calcium 9.0 mg/dL (8.6-10.3) 07/22/18 07:10 Total Bilirubin 0.3 mg/dL (0.3-1.0) 07/20/18 20:15 AST 22 U/L (13-39) 07/20/18 20:15 ALT 34 U/L (7-52) 07/20/18 20:15 Alkaline Phosphatase 55 U/L (34-104) 07/20/18 20:15 B-Natriuretic Peptide 7.2 pg/mL (5.0-100.0) 07/21/18 07:50 Total Protein 7.1 gm/dL (6.0-8.3) 07/20/18 20:15 Albumin 4.2 gm/dL (3.7-5.3) 07/20/18 20:15 Globulin 2.9 gm/dL 07/20/18 20:15 Albumin/Globulin Ratio 1.5 (1.0-1.8) 07/20/18 20:15 TSH 11.12 uIU/ml (0.34-5.60) H 07/21/18 07:50 Vancomycin Trough 14.8 ug/mL (5-10) H 07/23/18 12:55 - Physical Exam Vitals and I&O: Vital Signs Temp 97.1 F 07/23/18 15:36 Pulse 71 07/23/18 15:36 Resp 17 07/23/18 15:36 BP 101/51 07/23/18 15:36 Pulse Ox 95 07/23/18 15:36 Intake & Output 07/22/18 07/23/18 07/23/18 18:59 06:59 18:59 Intake Total 550 150 Balance 550 150 Weight (lbs) 127.006 kg 124.058 kg Intake: Intake, IV Amount 500 Vancomycin HCl 2 gm In 500 Sodium Chloride 0.9% 500 ml @ 250 mls/hr IV Q24H [facility] Rx#:[id number] Oral 50 150 Other: # Voids 3 2 # Bowel Movements 2 0 Stool Characteristics Formed Weight Source Bedscale Bedscale Active Medications: Current Medications Heparin Sodium (Porcine) (Heparin) 5,000 units SUBQ Q12H [facility] Stop: 09/19/18 11:59 Last Admin: 07/23/18 13:35 Dose: 5,000 units Vancomycin HCl 2 gm/ Sodium (Chloride) 500 mls @ 250 mls/hr IV Q24H [facility] Stop: 09/19/18 13:59 Last Admin: 07/23/18 15:38 Dose: 250 mls/hr Lactobacillus Rhamnosus (Culturelle 15b) 1 each PO DAILY [facility] Stop: 09/20/18 13:59 Last Admin: 07/23/18 13:36 Dose: 1 each Levothyroxine Sodium (Synthroid) 0.075 mg PO QDAC [facility] Stop: 09/19/18 16:29 Last Admin: 07/23/18 07:41 Dose: 0.075 mg Miscellaneous (Vancomycin Iv Per Pharmacy) 1 ea [facility] PRN PRN PRN Reason: PROTOCOL Stop: 09/19/18 07:37 Miscellaneous (Vte Chemical Prophylaxis Screen/ Admission) 1 ea MC PRN PRN PRN Reason: PROTOCOL Stop: 09/19/18 10:40 Miscellaneous (Clinical Monitoring) 1 ea MC PRN PRN PRN Reason: RENAL DOSE Stop: 09/19/18 14:24 Miscellaneous (Probiotic Screen) 1 ea MC PRN PRN PRN Reason: PROTOCOL Stop: 09/20/18 09:44 Temazepam (Restoril) 15 mg PO HS [facility]; Protocol Stop: 09/19/18 20:59 Last Admin: 07/22/18 23:54 Dose: Not Given Assessment/Plan - Assessment Assessment: Leukopenia of unknown duration, could be from B12 or folate deficiency, could be autoimmune, and could be a splenic sequestration. Therefore, I will obtain spleen ultrasound, B12, and folate level, RUPESH with reflex. If the patient is not neutropenic since the neutrophil count is 64%, no intervention is required. I will continue to monitor along with you. Other possibilities are also drug-induced leukopenia from antibiotics. 07/22: US pending. pancytopenia post underway. 07/23: lab noted. pancytopenia sec to splenic sequestration./hypersplenism
--- NOTE | 2018-07-23 18:42 | General Progress Note ---
Objective - Results Result Diagrams: 07/22/18 07:10 07/22/18 07:10 Recent Labs: Laboratory Last Values WBC 3.0 Th/cmm (4.8-10.8) L 07/22/18 07:10 RBC 4.26 Mil/cmm (3.80-5.20) 07/22/18 07:10 Hgb 11.7 gm/dL (12-16) L 07/22/18 07:10 Hct 34.8 % (41.0-60) L 07/22/18 07:10 MCV 81.8 fl (81-100) 07/22/18 07:10 MCH 27.5 pg (27.0-31.0) 07/22/18 07:10 MCHC Differential 33.6 pg (28.0-36.0) 07/22/18 07:10 RDW 12.8 % (11.5-20.0) 07/22/18 07:10 Plt Count 141 Th/cmm (150-400) L 07/22/18 07:10 MPV 7.0 fl 07/22/18 07:10 Neutrophils % 65.7 % (40.0-80.0) 07/22/18 07:10 Lymphocytes % 24.9 % (20.0-50.0) 07/22/18 07:10 Monocytes % 9.3 % (2.0-10.0) 07/22/18 07:10 Eosinophils % 0.1 % (0.0-5.0) 07/22/18 07:10 Basophils % 0.0 % (0.0-2.0) 07/22/18 07:10 PT 10.3 SECONDS (9.5-11.5) 07/21/18 07:50 INR 0.99 (0.5-1.4) 07/21/18 07:50 PTT (Actin FS) 31.9 SECONDS (26.0-38.0) 07/21/18 07:50 Sodium 139 mEq/L (136-145) 07/22/18 07:10 Potassium 5.1 mEq/L (3.5-5.1) 07/22/18 07:10 Chloride 109 mEq/L (98-107) H 07/22/18 07:10 Carbon Dioxide 24.9 mEq/L (21.0-31.0) 07/22/18 07:10 Anion Gap 10.2 (7.0-16.0) 07/22/18 07:10 BUN 25 mg/dL (7-25) 07/22/18 07:10 Creatinine 0.9 mg/dL (0.6-1.2) 07/22/18 07:10 Est GFR ( Amer) > 60.0 ml/min (>90) 07/22/18 07:10 Est GFR (Non-Af Amer) > 60.0 ml/min 07/22/18 07:10 BUN/Creatinine Ratio 27.8 07/22/18 07:10 Glucose 150 mg/dL (70-105) H 07/22/18 07:10 Calcium 9.0 mg/dL (8.6-10.3) 07/22/18 07:10 Total Bilirubin 0.3 mg/dL (0.3-1.0) 07/20/18 20:15 AST 22 U/L (13-39) 07/20/18 20:15 ALT 34 U/L (7-52) 07/20/18 20:15 Alkaline Phosphatase 55 U/L (34-104) 07/20/18 20:15 B-Natriuretic Peptide 7.2 pg/mL (5.0-100.0) 07/21/18 07:50 Total Protein 7.1 gm/dL (6.0-8.3) 07/20/18 20:15 Albumin 4.2 gm/dL (3.7-5.3) 07/20/18 20:15 Globulin 2.9 gm/dL 07/20/18 20:15 Albumin/Globulin Ratio 1.5 (1.0-1.8) 07/20/18 20:15 TSH 11.12 uIU/ml (0.34-5.60) H 07/21/18 07:50 Vancomycin Trough 14.8 ug/mL (5-10) H 07/23/18 12:55 - Physical Exam Vitals and I&O: Vital Signs Temp 97.1 F 07/23/18 15:36 Pulse 71 07/23/18 15:36 Resp 17 07/23/18 15:36 BP 101/51 07/23/18 15:36 Pulse Ox 95 07/23/18 15:36 Intake & Output 07/22/18 07/23/18 07/23/18 18:59 06:59 18:59 Intake Total 550 150 500 Balance 550 150 500 Weight (lbs) 127.006 kg 124.058 kg 123.831 kg Intake: Intake, IV Amount 500 Vancomycin HCl 2 gm In 500 Sodium Chloride 0.9% 500 ml @ 250 mls/hr IV Q24H [facility] Rx#:[id number] Oral 50 150 500 Other: # Voids 3 2 3 # Bowel Movements 2 0 1 Stool Characteristics Formed Formed Weight Source Bedscale Bedscale Bedscale Active Medications: Current Medications Heparin Sodium (Porcine) (Heparin) 5,000 units SUBQ Q12H [facility] Stop: 09/19/18 11:59 Last Admin: 07/23/18 13:35 Dose: 5,000 units Vancomycin HCl 2 gm/ Sodium (Chloride) 500 mls @ 250 mls/hr IV Q24H [facility] Stop: 09/19/18 13:59 Last Admin: 07/23/18 15:38 Dose: 250 mls/hr Lactobacillus Rhamnosus (Culturelle 15b) 1 each PO DAILY [facility] Stop: 09/20/18 13:59 Last Admin: 07/23/18 13:36 Dose: 1 each Levothyroxine Sodium (Synthroid) 0.075 mg PO QDAC [facility] Stop: 09/19/18 16:29 Last Admin: 07/23/18 07:41 Dose: 0.075 mg Miscellaneous (Vancomycin Iv Per Pharmacy) 1 ea [facility] PRN PRN PRN Reason: PROTOCOL Stop: 09/19/18 07:37 Miscellaneous (Vte Chemical Prophylaxis Screen/ Admission) 1 ea [facility] PRN PRN PRN Reason: PROTOCOL Stop: 09/19/18 10:40 Miscellaneous (Clinical Monitoring) 1 ea MC PRN PRN PRN Reason: RENAL DOSE Stop: 09/19/18 14:24 Miscellaneous (Probiotic Screen) 1 ea MC PRN PRN PRN Reason: PROTOCOL Stop: 09/20/18 09:44 Temazepam (Restoril) 15 mg PO HS [facility]; Protocol Stop: 09/19/18 20:59 Last Admin: 07/22/18 23:54 Dose: Not Given
[2018-07-23] MEDS ORDERED: PIROXICAM 20 MG PO PRN (19:14)
[2018-07-23] MEDS ORDERED: Magnesium Hydroxide (MOM) 30 mL UDC PO PRN (19:14)
[2018-07-23] MEDS ORDERED: Fleet Enema 135 mL RC PRN (19:14)
[2018-07-24] MEDS: Levothyroxine 0.075 Mg Tab PO SCH (06:53)
[2018-07-24] MEDS: Lactobacillus Rhamnosus GG 15 Billion CFU CAP.SPRINK PO SCH (08:24)
[2018-07-24] MEDS ORDERED: Multivitamin w/ Minerals Tab PO SCH (09:00)
[2018-07-24] MEDS ORDERED: Lactobacillus Rhamnosus GG 15 Billion CFU CAP.SPRINK PO SCH (09:00)
[2018-07-24] MEDS ORDERED: Non-Formulary Item 1 EA (Saccharomyces Boulardii [Florastor] 250 MG) PO SCH (09:00)
[2018-07-24] MEDS ORDERED: Non-Formulary Item 1 EA (Zinc Sulfate [Zinc Sulfate] 220 MG) PO SCH (09:00)
[2018-07-24 11:03] LABS: % BASOPHILS 0.3 % (0.0-2.0); % EOSINOPHILS 0.2 % (0.0-5.0); % LYMPHOCYTES 22.7 % (20.0-50.0); % MONOCYTES 8.9 % (2.0-10.0); % NEUTROPHILS 67.9 % (40.0-80.0); HEMATOCRIT 36.5 % (41.0-60); HEMOGLOBIN 12.1 gm/dL (12-16); LYMPHOCYTE ABSOLUTE 0.8 Th/cmm (1.5-3.0); MEAN CELL VOLUME 82.6 fl (81-100); MEAN CORPUSCULAR HEMOGLOBIN 27.3 pg (27.0-31.0); MEAN CORPUSCULAR HGB CONC 33.1 pg (28.0-36.0); MEAN PLATELET VOLUME 6.6 fl; MONOCYTE ABSOLUTE 0.3 Th/cmm (0.3-1.0); NEUTROPHILE ABSOLUTE 2.3 Th/cmm (1.8-8.0); PLATELET COUNT 150 Th/cmm (150-400); RED BLOOD COUNT 4.42 Mil/cmm (3.80-5.20); RED CELL DISTRIBUTION WIDTH 12.7 % (11.5-20.0)
[2018-07-24 11:10] LABS: WHITE BLOOD COUNT 3.4 Th/cmm (4.8-10.8)
[2018-07-24 11:17] LABS: ALB/GLOB RATIO 1.5 (1.0-1.8); ALBUMIN 3.8 gm/dL (3.7-5.3); ALKALINE PHOSPHATASE 39 U/L (34-104); ANION GAP 10.7 (7.0-16.0); BILIRUBIN,TOTAL 0.4 mg/dL (0.3-1.0); BUN - UREA NITROGEN 23 mg/dL (7-25); CALCIUM SERUM 9.5 mg/dL (8.6-10.3); CARBON DIOXIDE 26.8 mEq/L (21.0-31.0); CHLORIDE 106 mEq/L (98-107); GFR AFRICAN-AMERICAN > 60.0 ml/min (>90); GFR NON AFRICAN-AMERICAN 58.6 ml/min; GLUCOSE 154 mg/dL (70-105); POTASSIUM SERUM 4.5 mEq/L (3.5-5.1); SGOT 20 U/L (13-39); SGPT/ALT 29 U/L (7-52); SODIUM SERUM 139 mEq/L (136-145); TOTAL PROTEIN,SERUM 6.4 gm/dL (6.0-8.3)
[2018-07-24] MEDS ORDERED: IOHEXOL 300mgI/mL 100 ML VIAL IVP ONE (11:55)
--- NOTE | 2018-07-24 14:11 | Diagnostic Imaging Report ---
CT scan abdomen and pelvis with intravenous contrast HISTORY: Splenomegaly, pain Total DLP equals 952 CTDI equals 17.9 Axial sections were obtained from the xiphoid process down to the pubic symphysis following administration of intravenous contrast. The liver exhibits a normal size. No focal lesions. The spleen is somewhat increased in size. Intraluminal densities consistent with cholelithiasis noted. No focal abnormality seen within the pancreas. The adrenal glands appear normal bilaterally. No focal renal lesions. No hydronephrosis. The exam of the pelvis demonstrates preservation of normal fat planes. No abnormal soft tissue masses or abnormal fluid collections. Diverticula scattered throughout the colon particularly within the sigmoid region. Atherosclerotic calcination noted. Degenerative changes within the spine. Multiple dilated veins are seen within the anterior subcutaneous fatty tissues of the abdomen and pelvis. Small subcutaneous air collections are also noted. The findings should be correlated with any recent percutaneous injections. IMPRESSION: 1. Splenomegaly 2. Cholelithiasis 3. Findings consistent with multiple dilated veins within the anterior subcutaneous fatty tissues over the lower abdomen and pelvis. Additional small air collections noted within the anterior subcutaneous fatty tissues. Changes should be correlated with any recent percutaneous injections. 4. Atherosclerotic vascular changes 5. Diverticulosis
--- NOTE | 2018-07-24 15:29 | Infectious Disease Prog Note ---
Infectious Disease Subjective - Review of Systems Service Date: 07/24/18 Subjective: There is no new change, no fever. Infectious Disease Objective - Results Result Diagrams: 07/24/18 10:55 07/24/18 10:55 Recent Labs: Laboratory Last Values WBC 3.4 Th/cmm (4.8-10.8) L 07/24/18 10:55 RBC 4.42 Mil/cmm (3.80-5.20) 07/24/18 10:55 Hgb 12.1 gm/dL (12-16) 07/24/18 10:55 Hct 36.5 % (41.0-60) L 07/24/18 10:55 MCV 82.6 fl (81-100) 07/24/18 10:55 MCH 27.3 pg (27.0-31.0) 07/24/18 10:55 MCHC Differential 33.1 pg (28.0-36.0) 07/24/18 10:55 RDW 12.7 % (11.5-20.0) 07/24/18 10:55 Plt Count 150 Th/cmm (150-400) 07/24/18 10:55 MPV 6.6 fl 07/24/18 10:55 Neutrophils % 67.9 % (40.0-80.0) 07/24/18 10:55 Lymphocytes % 22.7 % (20.0-50.0) 07/24/18 10:55 Monocytes % 8.9 % (2.0-10.0) 07/24/18 10:55 Eosinophils % 0.2 % (0.0-5.0) 07/24/18 10:55 Basophils % 0.3 % (0.0-2.0) 07/24/18 10:55 PT 10.3 SECONDS (9.5-11.5) 07/21/18 07:50 INR 0.99 (0.5-1.4) 07/21/18 07:50 PTT (Actin FS) 31.9 SECONDS (26.0-38.0) 07/21/18 07:50 Sodium 139 mEq/L (136-145) 07/24/18 10:55 Potassium 4.5 mEq/L (3.5-5.1) 07/24/18 10:55 Chloride 106 mEq/L (98-107) 07/24/18 10:55 Carbon Dioxide 26.8 mEq/L (21.0-31.0) 07/24/18 10:55 Anion Gap 10.7 (7.0-16.0) 07/24/18 10:55 BUN 23 mg/dL (7-25) 07/24/18 10:55 Creatinine 1.0 mg/dL (0.6-1.2) 07/24/18 10:55 Est GFR ( Amer) > 60.0 ml/min (>90) 07/24/18 10:55 Est GFR (Non-Af Amer) 58.6 ml/min 07/24/18 10:55 BUN/Creatinine Ratio 23.0 07/24/18 10:55 Glucose 154 mg/dL (70-105) H 07/24/18 10:55 Calcium 9.5 mg/dL (8.6-10.3) 07/24/18 10:55 Total Bilirubin 0.4 mg/dL (0.3-1.0) 07/24/18 10:55 AST 20 U/L (13-39) 07/24/18 10:55 ALT 29 U/L (7-52) 07/24/18 10:55 Alkaline Phosphatase 39 U/L (34-104) 07/24/18 10:55 B-Natriuretic Peptide 7.2 pg/mL (5.0-100.0) 07/21/18 07:50 Total Protein 6.4 gm/dL (6.0-8.3) 07/24/18 10:55 Albumin 3.8 gm/dL (3.7-5.3) 07/24/18 10:55 Globulin 2.6 gm/dL 07/24/18 10:55 Albumin/Globulin Ratio 1.5 (1.0-1.8) 07/24/18 10:55 TSH 11.12 uIU/ml (0.34-5.60) H 07/21/18 07:50 Vancomycin Trough 14.8 ug/mL (5-10) H 07/23/18 12:55 - Physical Exam Vitals and I&O: Vital Signs Temp 98.4 F 07/24/18 11:55 Pulse 71 07/24/18 11:55 Resp 19 07/24/18 11:55 BP 113/65 07/24/18 11:55 Pulse Ox 98 07/24/18 11:55 Intake & Output 07/23/18 07/24/18 07/24/18 18:59 06:59 18:59 Intake Total 1500 480 240 Balance 1500 480 240 Weight (lbs) 123.831 kg 123.831 kg 123.831 kg Intake: Intake, IV Amount 500 Vancomycin HCl 2 gm In 500 Sodium Chloride 0.9% 500 ml @ 250 mls/hr IV Q24H [facility] Rx#:[id number] Oral 1000 480 240 Other: # Voids 3 1 1 # Bowel Movements 1 0 1 Stool Characteristics Formed Weight Source Bedscale Bedscale Bedscale Active Medications: Current Medications Acetaminophen (Tylenol) 650 mg PO Q4H PRN PRN Reason: MILD PAIN OR TEMP >101 Amlodipine Besylate (Norvasc) 5 mg PO BID [facility] Stop: 09/22/18 08:59 Last Admin: 07/24/18 08:24 Dose: 5 mg Ascorbic Acid (Vitamin C) 500 mg PO DAILY [facility] Stop: 09/22/18 08:59 Last Admin: 07/24/18 08:25 Dose: 500 mg Bisacodyl (Dulcolax 10 Mg Supp) 10 mg RC DAILY PRN PRN Reason: IF MOM INEFFECTIVE Stop: 09/21/18 19:13 Docusate Sodium (Colace) 100 mg PO DAILY [facility] Stop: 09/22/18 08:59 Last Admin: 07/24/18 08:25 Dose: 100 mg Heparin Sodium (Porcine) (Heparin) 5,000 units SUBQ Q12H [facility] Stop: 09/19/18 11:59 Last Admin: 07/24/18 11:48 Dose: 5,000 units Hydrochlorothiazide (Hctz) 25 mg PO BID [facility] Stop: 09/22/18 08:59 Last Admin: 07/24/18 08:26 Dose: 25 mg Vancomycin HCl 2 gm/ Sodium (Chloride) 500 mls @ 250 mls/hr IV Q24H [facility] Stop: 09/19/18 13:59 Last Admin: 07/24/18 13:21 Dose: 250 mls/hr Lactobacillus Rhamnosus (Culturelle 15b) 1 each PO DAILY [facility] Stop: 09/20/18 13:59 Last Admin: 07/24/18 08:24 Dose: 1 each Lactobacillus Rhamnosus (Culturelle 15b) 1 each PO BID [facility] Stop: 07/29/18 08:59 Last Admin: 07/24/18 11:50 Dose: Not Given Levothyroxine Sodium (Synthroid) 0.05 mg PO QDAC [facility] Stop: 09/23/18 07:29 Losartan Potassium (Cozaar) 50 mg PO BID [facility] Stop: 09/22/18 08:59 Last Admin: 07/24/18 11:48 Dose: 50 mg Magnesium Hydroxide (Milk Of Magnesia) 30 ml PO HS PRN PRN Reason: Constipation Stop: 09/21/18 19:13 Miscellaneous (Vancomycin Iv Per Pharmacy) 1 ea PRN PRN PRN Reason: PROTOCOL Stop: 09/19/18 07:37 Miscellaneous (Vte Chemical Prophylaxis Screen/ Admission) 1 ea PRN PRN PRN Reason: PROTOCOL Stop: 09/19/18 10:40 Miscellaneous (Clinical Monitoring) 1 ea PRN PRN PRN Reason: RENAL DOSE Stop: 09/19/18 14:24 Miscellaneous (Probiotic Screen) 1 ea PRN PRN PRN Reason: PROTOCOL Stop: 09/20/18 09:44 Miscellaneous (Piroxicam [Piroxicam]) 20 mg PO PRN PRN PRN Reason: ARTHRITIS PAIN Sodium Phosphate (Fleet Enema) 135 ml RC Q48H PRN PRN Reason: IF DULCOLAX INEFFECTIVE Stop: 09/21/18 19:13 Temazepam (Restoril) 15 mg PO HS [facility]; Protocol Stop: 09/19/18 20:59 Last Admin: 07/23/18 21:14 Dose: Not Given Zinc Sulfate (Zinc Sulfate) 220 mg PO DAILY [facility] Stop: 09/22/18 08:59 Last Admin: 07/24/18 11:48 Dose: 220 mg General: no acute distress, well developed, well nourished HEENT: atraumatic, normocephalic, PERRLA, EOMI Neck: supple, no thyromegaly Cardiovascular: S1S2, regular Lungs: clear to auscultation bilaterally, clear to percussion Abdomen: soft, no tender, no distended Extremities: other (right leg swelling and erythema better.), no cyanosis, no clubbing, no edema Neurological: awake, alert, oriented Skin: intact Infectious Disease Assmt/Plan - Assessment Assessment: 1. Right leg cellulitis. 2. History of deep venous thrombosis. 3. Obesity. 4. Diabetes mellitus type 2. 5. Hypertension. 6. Cholelithiasis. - Plan Plan: Continue VancO IV at this time. Check HIDA scan.
--- NOTE | 2018-07-24 18:17 | General Progress Note ---
Subjective - Review of Systems Service Date: 07/24/18 Subjective: Feels ok Objective - Results Result Diagrams: 07/24/18 10:55 07/24/18 10:55 Recent Labs: Laboratory Last Values WBC 3.4 Th/cmm (4.8-10.8) L 07/24/18 10:55 RBC 4.42 Mil/cmm (3.80-5.20) 07/24/18 10:55 Hgb 12.1 gm/dL (12-16) 07/24/18 10:55 Hct 36.5 % (41.0-60) L 07/24/18 10:55 MCV 82.6 fl (81-100) 07/24/18 10:55 MCH 27.3 pg (27.0-31.0) 07/24/18 10:55 MCHC Differential 33.1 pg (28.0-36.0) 07/24/18 10:55 RDW 12.7 % (11.5-20.0) 07/24/18 10:55 Plt Count 150 Th/cmm (150-400) 07/24/18 10:55 MPV 6.6 fl 07/24/18 10:55 Neutrophils % 67.9 % (40.0-80.0) 07/24/18 10:55 Lymphocytes % 22.7 % (20.0-50.0) 07/24/18 10:55 Monocytes % 8.9 % (2.0-10.0) 07/24/18 10:55 Eosinophils % 0.2 % (0.0-5.0) 07/24/18 10:55 Basophils % 0.3 % (0.0-2.0) 07/24/18 10:55 PT 10.3 SECONDS (9.5-11.5) 07/21/18 07:50 INR 0.99 (0.5-1.4) 07/21/18 07:50 PTT (Actin FS) 31.9 SECONDS (26.0-38.0) 07/21/18 07:50 Sodium 139 mEq/L (136-145) 07/24/18 10:55 Potassium 4.5 mEq/L (3.5-5.1) 07/24/18 10:55 Chloride 106 mEq/L (98-107) 07/24/18 10:55 Carbon Dioxide 26.8 mEq/L (21.0-31.0) 07/24/18 10:55 Anion Gap 10.7 (7.0-16.0) 07/24/18 10:55 BUN 23 mg/dL (7-25) 07/24/18 10:55 Creatinine 1.0 mg/dL (0.6-1.2) 07/24/18 10:55 Est GFR ( Amer) > 60.0 ml/min (>90) 07/24/18 10:55 Est GFR (Non-Af Amer) 58.6 ml/min 07/24/18 10:55 BUN/Creatinine Ratio 23.0 07/24/18 10:55 Glucose 154 mg/dL (70-105) H 07/24/18 10:55 Calcium 9.5 mg/dL (8.6-10.3) 07/24/18 10:55 Total Bilirubin 0.4 mg/dL (0.3-1.0) 07/24/18 10:55 AST 20 U/L (13-39) 07/24/18 10:55 ALT 29 U/L (7-52) 07/24/18 10:55 Alkaline Phosphatase 39 U/L (34-104) 07/24/18 10:55 B-Natriuretic Peptide 7.2 pg/mL (5.0-100.0) 07/21/18 07:50 Total Protein 6.4 gm/dL (6.0-8.3) 07/24/18 10:55 Albumin 3.8 gm/dL (3.7-5.3) 07/24/18 10:55 Globulin 2.6 gm/dL 07/24/18 10:55 Albumin/Globulin Ratio 1.5 (1.0-1.8) 07/24/18 10:55 TSH 11.12 uIU/ml (0.34-5.60) H 07/21/18 07:50 Vancomycin Trough 14.8 ug/mL (5-10) H 07/23/18 12:55 - Physical Exam Vitals and I&O: Vital Signs Temp 98.4 F 07/24/18 11:55 Pulse 72 07/24/18 17:19 Resp 19 07/24/18 11:55 BP 115/69 07/24/18 17:19 Pulse Ox 98 07/24/18 11:55 Intake & Output 07/23/18 07/24/18 07/24/18 18:59 06:59 18:59 Intake Total 1500 480 240 Balance 1500 480 240 Weight (lbs) 123.831 kg 123.831 kg 123.831 kg Intake: Intake, IV Amount 500 Vancomycin HCl 2 gm In 500 Sodium Chloride 0.9% 500 ml @ 250 mls/hr IV Q24H [facility] Rx#:[id number] Oral 1000 480 240 Other: # Voids 3 1 1 # Bowel Movements 1 0 1 Stool Characteristics Formed Weight Source Bedscale Bedscale Bedscale Active Medications: Current Medications Acetaminophen (Tylenol) 650 mg PO Q4H PRN PRN Reason: MILD PAIN OR TEMP >101 Amlodipine Besylate (Norvasc) 5 mg PO BID [facility] Stop: 09/22/18 08:59 Last Admin: 07/24/18 17:19 Dose: 5 mg Ascorbic Acid (Vitamin C) 500 mg PO DAILY [facility] Stop: 09/22/18 08:59 Last Admin: 07/24/18 08:25 Dose: 500 mg Bisacodyl (Dulcolax 10 Mg Supp) 10 mg RC DAILY PRN PRN Reason: IF MOM INEFFECTIVE Stop: 09/21/18 19:13 Docusate Sodium (Colace) 100 mg PO DAILY [facility] Stop: 09/22/18 08:59 Last Admin: 07/24/18 08:25 Dose: 100 mg Heparin Sodium (Porcine) (Heparin) 5,000 units SUBQ Q12H [facility] Stop: 09/19/18 11:59 Last Admin: 07/24/18 11:48 Dose: 5,000 units Hydrochlorothiazide (Hctz) 25 mg PO BID [facility] Stop: 09/22/18 08:59 Last Admin: 07/24/18 17:18 Dose: 25 mg Vancomycin HCl 2 gm/ Sodium (Chloride) 500 mls @ 250 mls/hr IV Q24H [facility] Stop: 09/19/18 13:59 Last Admin: 07/24/18 13:21 Dose: 250 mls/hr Lactobacillus Rhamnosus (Culturelle 15b) 1 each PO DAILY [facility] Stop: 07/30/18 23:00 Last Admin: 07/24/18 08:24 Dose: 1 each Levothyroxine Sodium (Synthroid) 0.05 mg PO QDAC [facility] Stop: 09/23/18 07:29 Losartan Potassium (Cozaar) 50 mg PO BID [facility] Stop: 09/22/18 08:59 Last Admin: 07/24/18 17:19 Dose: Not Given Magnesium Hydroxide (Milk Of Magnesia) 30 ml PO HS PRN PRN Reason: Constipation Stop: 09/21/18 19:13 Miscellaneous (Vancomycin Iv Per Pharmacy) 1 ea PRN PRN PRN Reason: PROTOCOL Stop: 09/19/18 07:37 Miscellaneous (Vte Chemical Prophylaxis Screen/ Admission) 1 ea PRN PRN PRN Reason: PROTOCOL Stop: 09/19/18 10:40 Miscellaneous (Clinical Monitoring) 1 ea PRN PRN PRN Reason: RENAL DOSE Stop: 09/19/18 14:24 Miscellaneous (Probiotic Screen) 1 ea PRN PRN PRN Reason: PROTOCOL Stop: 09/20/18 09:44 Miscellaneous (Piroxicam [Piroxicam]) 20 mg PO PRN PRN PRN Reason: ARTHRITIS PAIN Sodium Phosphate (Fleet Enema) 135 ml RC Q48H PRN PRN Reason: IF DULCOLAX INEFFECTIVE Stop: 09/21/18 19:13 Temazepam (Restoril) 15 mg PO HS [facility]; Protocol Stop: 09/19/18 20:59 Last Admin: 07/23/18 21:14 Dose: Not Given Zinc Sulfate (Zinc Sulfate) 220 mg PO DAILY [facility] Stop: 09/22/18 08:59 Last Admin: 07/24/18 11:48 Dose: 220 mg Assessment/Plan - Assessment Assessment: Leukopenia of unknown duration, could be from B12 or folate deficiency, could be autoimmune, and could be a splenic sequestration. Therefore, I will obtain spleen ultrasound, B12, and folate level, RUPESH with reflex. If the patient is not neutropenic since the neutrophil count is 64%, no intervention is required. I will continue to monitor along with you. Other possibilities are also drug-induced leukopenia from antibiotics. 07/22: US pending. pancytopenia post underway. 07/23: lab noted. pancytopenia sec to splenic sequestration./hypersplenism 07/24: CT noted, HIDA normal no evidence of cholecystitis. Mild leukopenia stable. sec to splenic sequestration./hypersplenism
[2018-07-25 06:13] LABS: FOLIC ACID 11.3 ng/mL (>3.0)
[2018-07-25] MEDS ORDERED: Levothyroxine 0.05 Mg Tab PO SCH (07:30)
--- NOTE | 2018-07-25 10:44 | Diagnostic Imaging Report ---
Exam: HIDA scan. IMPRESSION cholelithiasis. Utilizing 5.6 mCi of technetium 99m Choletec examination of liver and biliary G was obtained The study demonstrates normal appearance of the liver parenchyma with normal excretion of radiopharmaceutical into the common bile duct and small bowel. The gallbladder is intact. There is no evidence for cholecystitis. IMPRESSION: Essentially unremarkable HIDA scan.
--- NOTE | 2018-07-26 10:33 | General Progress Note ---
Subjective - Review of Systems Service Date: 07/24/18 Subjective: patient was found to have incidental gallstones and a HIDA was requested The report came back as normal flow and no cystic duct obstruction at which point an elective non urgent procedure could be recommended once medical clearance could be obtained. Patient returning to detention facility and would call to make appointment in my office. labs (liver function tests and CBC were acceptable for a reassessment for possible laparoscopic vs open cholecystectomy at a later date. Objective - Results Result Diagrams: 07/24/18 10:55 07/24/18 10:55 Recent Labs: Laboratory Last Values WBC 3.4 Th/cmm (4.8-10.8) L 07/24/18 10:55 RBC 4.42 Mil/cmm (3.80-5.20) 07/24/18 10:55 Hgb 12.1 gm/dL (12-16) 07/24/18 10:55 Hct 36.5 % (41.0-60) L 07/24/18 10:55 MCV 82.6 fl (81-100) 07/24/18 10:55 MCH 27.3 pg (27.0-31.0) 07/24/18 10:55 MCHC Differential 33.1 pg (28.0-36.0) 07/24/18 10:55 RDW 12.7 % (11.5-20.0) 07/24/18 10:55 Plt Count 150 Th/cmm (150-400) 07/24/18 10:55 MPV 6.6 fl 07/24/18 10:55 Neutrophils % 67.9 % (40.0-80.0) 07/24/18 10:55 Lymphocytes % 22.7 % (20.0-50.0) 07/24/18 10:55 Monocytes % 8.9 % (2.0-10.0) 07/24/18 10:55 Eosinophils % 0.2 % (0.0-5.0) 07/24/18 10:55 Basophils % 0.3 % (0.0-2.0) 07/24/18 10:55 PT 10.3 SECONDS (9.5-11.5) 07/21/18 07:50 INR 0.99 (0.5-1.4) 07/21/18 07:50 PTT (Actin FS) 31.9 SECONDS (26.0-38.0) 07/21/18 07:50 Sodium 139 mEq/L (136-145) 07/24/18 10:55 Potassium 4.5 mEq/L (3.5-5.1) 07/24/18 10:55 Chloride 106 mEq/L (98-107) 07/24/18 10:55 Carbon Dioxide 26.8 mEq/L (21.0-31.0) 07/24/18 10:55 Anion Gap 10.7 (7.0-16.0) 07/24/18 10:55 BUN 23 mg/dL (7-25) 07/24/18 10:55 Creatinine 1.0 mg/dL (0.6-1.2) 07/24/18 10:55 Est GFR ( Amer) > 60.0 ml/min (>90) 07/24/18 10:55 Est GFR (Non-Af Amer) 58.6 ml/min 07/24/18 10:55 BUN/Creatinine Ratio 23.0 07/24/18 10:55 Glucose 154 mg/dL (70-105) H 07/24/18 10:55 Calcium 9.5 mg/dL (8.6-10.3) 07/24/18 10:55 Total Bilirubin 0.4 mg/dL (0.3-1.0) 07/24/18 10:55 AST 20 U/L (13-39) 07/24/18 10:55 ALT 29 U/L (7-52) 07/24/18 10:55 Alkaline Phosphatase 39 U/L (34-104) 07/24/18 10:55 B-Natriuretic Peptide 7.2 pg/mL (5.0-100.0) 07/21/18 07:50 Total Protein 6.4 gm/dL (6.0-8.3) 07/24/18 10:55 Albumin 3.8 gm/dL (3.7-5.3) 07/24/18 10:55 Globulin 2.6 gm/dL 07/24/18 10:55 Albumin/Globulin Ratio 1.5 (1.0-1.8) 07/24/18 10:55 Vitamin B12 >1999 pg/mL (232-1245) H 07/22/18 07:10 Folic Acid 11.3 ng/mL (>3.0) 07/22/18 07:10 TSH 11.12 uIU/ml (0.34-5.60) H 07/21/18 07:50 Vancomycin Trough 14.8 ug/mL (5-10) H 07/23/18 12:55 - Physical Exam Vitals and I&O: Vital Signs Temp 98.2 F 07/24/18 20:00 Pulse 68 07/24/18 20:00 Resp 18 07/24/18 20:00 BP 106/52 07/24/18 20:00 Pulse Ox 97 07/24/18 20:00
--- NOTE | 2018-08-11 19:13 | Discharge Summary ---
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 The patient was given IV antibiotics and also anticoagulation therapy. The patient improved. The patient was in stable condition on 07/24/2018, the patient was discharged back to [facility] where I will be following the patient. CONDITION AT TIME OF DISCHARGE: Stable. JOB# [id number]
== END 2018-07-24 20:58 | DRG 872 ==
LOC: ER 19:47 → MSI 07-21 02:09
PROVIDERS: ADMIT Internal Medicine; ATTEND Internal Medicine
DX: A41.9 Sepsis, unspecified organism (principal); D61.818 Other pancytopenia; L03.115 Cellulitis of right lower limb; Z68.43 Body mass index [BMI] 50.0-59.9, adult; I10 Essential (primary) hypertension; D51.9 Vitamin B12 deficiency anemia, unspecified; E11.65 Type 2 diabetes mellitus with hyperglycemia; E66.01 Morbid (severe) obesity due to excess calories; M19.90 Unspecified osteoarthritis, unspecified site; D53.1 Other megaloblastic anemias, not elsewhere classified; D73.1 Hypersplenism; K80.20 Calculus of gallbladder without cholecystitis without obstruction; Z86.718 Personal history of other venous thrombosis and embolism; Z88.8 Allergy status to other drugs, medicaments and biological substances; Z88.0 Allergy status to penicillin; Z82.49 Family history of ischemic heart disease and other diseases of the circulatory system; Z90.49 Acquired absence of other specified parts of digestive tract; Z90.710 Acquired absence of both cervix and uterus; Z71.3 Dietary counseling and surveillance
CPT/HCPCS: 36415-UA; 76700-TC; 78226-TC; 80048-TC; 80053-TC; 80202-TC; 82607-90; 82746-90; 83880-TC; 84443-TC; 85025-TC; 85610-TC; 85730-TC; A9537; J1644; J1956; J3370; J7030; J7040; Q9967

== ENCOUNTER 2018-08-20 17:03 | Inpatient (IN) | payer MEDICARE, MEDICAID ==
[2018-08-20 17:48] LABS: % BASOPHILS 0.2 % (0.0-2.0); % EOSINOPHILS 0.2 % (0.0-5.0); % MONOCYTES 8.4 % (2.0-10.0); % NEUTROPHILS 65.2 % (40.0-80.0); HEMATOCRIT 42.1 % (41.0-60); HEMOGLOBIN 13.8 gm/dL (12-16); LYMPHOCYTE ABSOLUTE 1.2 Th/cmm (1.5-3.0); MEAN CELL VOLUME 82.3 fl (81-100); MEAN CORPUSCULAR HGB CONC 32.8 pg (28.0-36.0); MEAN PLATELET VOLUME 6.7 fl; MONOCYTE ABSOLUTE 0.4 Th/cmm (0.3-1.0); NEUTROPHILE ABSOLUTE 2.9 Th/cmm (1.8-8.0); PLATELET COUNT 169 Th/cmm (150-400); RED BLOOD COUNT 5.12 Mil/cmm (3.80-5.20); RED CELL DISTRIBUTION WIDTH 13.1 % (11.5-20.0); WHITE BLOOD COUNT 4.5 Th/cmm (4.8-10.8)
[2018-08-20 18:05] LABS: ALB/GLOB RATIO 1.4 (1.0-1.8); ALBUMIN 4.1 gm/dL (3.7-5.3); ALKALINE PHOSPHATASE 48 U/L (34-104); ANION GAP 12.3 (7.0-16.0); BILIRUBIN,TOTAL 0.5 mg/dL (0.3-1.0); BUN - UREA NITROGEN 28 mg/dL (7-25); CALCIUM SERUM 9.4 mg/dL (8.6-10.3); CHLORIDE 102 mEq/L (98-107); GFR AFRICAN-AMERICAN > 60.0 ml/min (>90); GFR NON AFRICAN-AMERICAN 58.4 ml/min; GLUCOSE 167 mg/dL (70-105); MAGNESIUM 1.8 mg/dL (1.9-2.7); PHOSPHOROUS 3.3 mg/dL (2.5-5.0); POTASSIUM SERUM 4.3 mEq/L (3.5-5.1); SGOT 24 U/L (13-39); SGPT/ALT 35 U/L (7-52); SODIUM SERUM 139 mEq/L (136-145)
[2018-08-20 18:17] LABS: DDIMER QUANT < 100 ng/mL (100-400)
--- NOTE | 2018-08-20 18:59 | ED Physician Chart ---
ED Chief Complaint/HPI - Patient Information Date Seen:: 08/20/18 Time Seen:: 17:13 Chief Complaint:: concern over RLE cellulitis History of Present Illness:: concern over RLE cellulitis Allergies:: Allergies Allergy/AdvReac Type Severity Reaction Status Date / Time naproxen [From Naprosyn] Allergy Verified 07/09/18 11:23 Penicillins Allergy Verified 07/09/18 11:23 Vitals:: Vital Signs - 8 hr 08/20/18 17:13 Temp 98.0 F HR 60 RR 17 BP 149/55 O2 Sat % 98 Historian:: Patient Review:: Nurse's Note Reviewed ED Review of Systems - Review of Systems General/Constitutional: No fever, No chills, No weight loss, No weakness, No diaphoresis, No edema, No loss of appetite Skin: Other (RLE is slightly pink and warn to the touch. Edema of 2 to 3+ bilateral. Negative José Antonio's.) Head: No headache, No light-headedness Eyes: No loss of vision, No pain, No diplopia ENT: No earache, No nasal drainage, No sore throat, No tinnitus Neck: No neck pain, No swelling, No thyromegaly, No stiffness, No mass noted Cardio Vascular: No chest pain, No palpitations, No PND, No orthopnea, No edema Pulmonary: No SOB, No cough, No sputum, No wheezing GI: No nausea, No vomiting, No diarrhea, No pain, No melena, No hematochezia, No constipation, No hematemesis G/U: No dysuria, No frequency, No hematuria Musculoskeletal: No bone or joint pain, No back pain, No muscle pain Endocrine: No polyuria, No polydipsia Psychiatric: No prior psych history, No depression, No anxiety, No suicidal ideation Hematopoietic: No bruising, No lymphadenopathy Allergic/Immuno: No urticaria, No angioedema Neurological: No syncope, No focal symptoms, No weakness, No paresthesia, No headache, No seizure, No dizziness, No confusion, No vertigo ED Past Medical History - Past Medical History Obtainable: Yes Past Medical History: Other (pre diabetes; BLE cellulitis by history) Family Medical History - Family Member Brother History Unknown: Yes Ethnicity: Living Status: Still Living Hx Family Cancer: Yes (paternal uncle (stomach cancer)) Hx Family Coronary Artery Disease: No Hx Family Congestive Heart Failure: No Hx Family Hypertension: Yes (paternal grandmother) Hx Family Stroke: Yes (mother) Hx Family Diabetes: Yes (brother) Hx Family Seizures: No Hx Family Dementia: Yes (mother) Hx Family AIDS: No Hx Family HIV: No Hx Family COPD: No Hx Family Hepatitis: No Hx Family Psychiatric Problems: No Hx Family Tuberculosis: No ED Physical Exam - Physical Examination General/Constitutional: Well-developed, well-nourished, Alert, No distress, GCS 15, Non-toxic appearing, Ambulatory Other Gen/Cons comments:: morbidly obese. Head: Atraumatic Eyes: Lids, conjuctiva normal, PERRL, EOMI Other Skin comments:: RLE pink slightly and warm to the touch. Indurated. 3+ pitting edema. Negative José Antonio's. ENMT: External ears, nose nl Neck: Nontender, No nuchal rigidity, No stridor Respiratory: Nl effort/Exclusion, Clear to Auscultation, No Wheeze/Rhonchi/Rales Cardio Vascular: RRR, No murmur, gallop, rubs, NL S1 S2 GI: No tenderness/rebounding/guarding, No organomegaly, No hernia, Normal BS's, Nondistended, No mass/bruits, No McBurney tenderness : No CVA tenderness Other Extremities comments:: RLE pink slightly and warm to the touch. Indurated. 3+ pitting edema. Negative José Antonio's. Neuro/Psych: Alert/oriented, Normal sensory exam, Normal motor strength, Mood normal, Normal gait, No focal deficits Misc: Normal back, No paraspinal tenderness ED Labs/Radiology/EKG Results - Lab Results Results: Laboratory Tests 08/20/18 08/20/18 08/20/18 17:30 17:30 17:30 WBC 4.5 L RBC 5.12 Hgb 13.8 Hct 42.1 MCV 82.3 MCH 27.0 MCHC Differential 32.8 RDW 13.1 Plt Count 169 MPV 6.7 Neutrophils % 65.2 Lymphocytes % 26.0 Monocytes % 8.4 Eosinophils % 0.2 Basophils % 0.2 D-Dimer < 100 L Sodium 139 Potassium 4.3 Chloride 102 Carbon Dioxide 29.0 Anion Gap 12.3 BUN 28 H Creatinine 1.0 Est GFR ( Amer) > 60.0 Est GFR (Non-Af Amer) 58.4 BUN/Creatinine Ratio 28.0 Glucose 167 H Calcium 9.4 Phosphorus 3.3 Magnesium 1.8 L Total Bilirubin 0.5 AST 24 ALT 35 Alkaline Phosphatase 48 B-Natriuretic Peptide 28.0 Total Protein 7.0 Albumin 4.1 Globulin 2.9 Albumin/Globulin Ratio 1.4 ED Assessment - Assessment General Assessment: report given to Dr. Fraser who will be admitting this patient. ED Septic Shock - . Is Septic Shock (SBP<90, OR Lactate>4 mmol\L) present?: No - <6hrs of presentation: Vital Signs: Vital Signs - 8 hr 08/20/18 17:13 Temp 98.0 F HR 60 RR 17 BP 149/55 O2 Sat % 98 ED Reassessment (Disposition) - Reassessment Reassessment Condition:: Unchanged - Diagnosis Diagnosis:: RLE cellulitis. Morbid obesity. - Patient Disposition Discharge/Transfer:: Acute Care w/in this hosp Condition at Disposition:: Stable, Unchanged
[2018-08-20 19:24] LABS: URINE SOURCE CLEAN C
[2018-08-20 19:30] LABS: URINE BILIRUBIN NEGATIVE (NEGATIVE); URINE BLOOD NEGATIVE (NEGATIVE); URINE GLUCOSE (UA) NEGATIVE (NEGATIVE); URINE KETONE NEGATIVE (NEGATIVE); URINE LEUKOCYTE ESTERASE NEGATIVE (NEGATIVE); URINE NITRATE NEGATIVE (NEGATIVE); URINE PH 5.5 (4.6 - 8.0); URINE PROTEIN NEGATIVE (NEGATIVE); URINE UROBILINOGEN 0.2 E.U./dL (0.2 - 1.0)
[2018-08-20 19:40] LABS: URINE CLARITY CLEAR (CLEAR); URINE COLOR YELLOW; URINE MICROSCOPIC INDICATED? YES
[2018-08-20 19:41] LABS: URINE BACTERIA FEW /hpf (NONE SEEN); URINE EPITHELIAL CELLS FEW /lpf (FEW); URINE RBC NONE SEEN /hpf (0-5); URINE WBC 0-2 /hpf (0-5)
[2018-08-20] MEDS ORDERED: Non-Formulary Item 1 EA (Acetaminophen [Tylenol] 650 MG) PO PRN (20:51)
[2018-08-20] MEDS ORDERED: Fleet Enema 135 mL RC PRN (20:53)
[2018-08-20] MEDS ORDERED: Non-Formulary Item 1 EA (Heparin Sodium,Porcine [Heparin Sodium] 5,000 UNIT) IJ SCH (21:00)
[2018-08-20] MEDS: Codeine/Promethazine Susp 5 mL UDC PO SCH (21:20)
--- NOTE | 2018-08-21 02:19 | Consultation ---
DATE OF CONSULTATION: 08/20/2018 INFECTIOUS DISEASE CONSULTATION REFERRING PHYSICIAN: Dr. Fraser REASON FOR CONSULTATION: Right leg cellulitis. HISTORY OF PRESENT ILLNESS: The patient is a 68-year-old female with past medical history of obesity, lymphedema of lower extremities, posterior edema of legs, brought in from retirement for swelling and redness of the right leg. The patient had similar symptoms a few weeks ago. She was treated with antibiotics. She stated that when she does workout and exercises and walks a long time, she develops swelling of both legs. She is taking care of her legs and using moisturizer as recommended; however, it got worse today, so she came to the ER for further evaluation and management. On initial evaluation, the patient's temperature was 98 degrees Fahrenheit and WBC count was 4500. The patient was diagnosed to have sepsis and started on vancomycin and Zosyn. ALLERGIES: THE PATIENT IS ALLERGIC TO PENICILLIN AND NAPROXEN. PAST MEDICAL HISTORY: Includes diabetes mellitus type 2, lymphedema, obesity, hypertension, and DVT of right leg. MEDICATIONS: Per medication reconciliation sheet. Antibiotic weems, the patient is on oral vancomycin and Zosyn. SOCIAL HISTORY: The patient lives in a nursing facility. No history of smoking, alcohol or drug use. FAMILY HISTORY: Hypertension. REVIEW OF SYSTEMS: GENERAL: The patient has no fever, no chills. HEENT: No diplopia, no photophobia, no sore throat. RESPIRATORY: No cough, no shortness of breath. CARDIOVASCULAR: No chest pain or palpitation. GASTROINTESTINAL: No nausea, no vomiting, no diarrhea, no constipation. MUSCULOSKELETAL: No muscle pain. The patient has leg swelling with redness, worse on the posterior part of the right leg. NEUROLOGIC: No headache, no dizziness, no focal weakness. PHYSICAL EXAMINATION: VITAL SIGNS: Current vital signs show temperature is 98.2, pulse 70, respirations 20, blood pressure 146/79, oxygen saturation 98%. GENERAL: The patient is comfortable lying in the bed, obese. HEENT: Head is normocephalic and atraumatic. Oral cavity is moist. Kinross tongue. Eyes: No pallor. No icterus. PERRLA, EOMI. NECK: Supple. No JVD. No carotid bruit. Trachea midline. CHEST: Bilateral decreased breath sounds. HEART: S1 and S2 within normal limits. Regular rhythm. No murmur, no gallop. ABDOMEN: Soft, nontender, nondistended. Bowel sounds present. EXTREMITIES: No cyanosis, no clubbing, no pitting edema. The patient has swollen legs with redness on the right lower leg, most prominent swelling and redness on the posterior part of the leg. NEUROLOGIC: Alert, awake, and oriented x 3. No focal deficit. LABORATORY DATA: Current lab shows WBC of 4500, hemoglobin 13.8, hematocrit 42.1, platelets are 169,000, neutrophils 65.2%. D-dimer less than 100. Sodium 139, potassium 4.3, chloride 102, bicarbonate is 29, BUN is 28, creatinine is ____, glucose is 167. Urinalysis with negative nitrite and negative leukocyte esterase. Blood cultures are done. IMPRESSION: 1. Right leg cellulitis. 2. Diabetes mellitus type 2. 3. Lymphedema. 4. Postural edema. 5. Diabetes mellitus type 2. 6. Hypertension. RECOMMENDATIONS: We will continue vancomycin and discontinue Zosyn. Thank you, Dr. Fraser, for involving me in taking care of this patient. JOB# [id number]
[2018-08-21 06:30] LABS: % BASOPHILS 0.1 % (0.0-2.0); % EOSINOPHILS 0.2 % (0.0-5.0); % LYMPHOCYTES 15.6 % (20.0-50.0); % MONOCYTES 10.1 % (2.0-10.0); HEMATOCRIT 39.7 % (41.0-60); HEMOGLOBIN 13.4 gm/dL (12-16); LYMPHOCYTE ABSOLUTE 0.7 Th/cmm (1.5-3.0); MEAN CELL VOLUME 80.9 fl (81-100); MEAN CORPUSCULAR HEMOGLOBIN 27.2 pg (27.0-31.0); MEAN CORPUSCULAR HGB CONC 33.7 pg (28.0-36.0); MONOCYTE ABSOLUTE 0.4 Th/cmm (0.3-1.0); NEUTROPHILE ABSOLUTE 3.3 Th/cmm (1.8-8.0); PLATELET COUNT 157 Th/cmm (150-400); RED BLOOD COUNT 4.91 Mil/cmm (3.80-5.20); RED CELL DISTRIBUTION WIDTH 13.3 % (11.5-20.0); WHITE BLOOD COUNT 4.4 Th/cmm (4.8-10.8)
[2018-08-21 06:55] LABS: ANION GAP 14.2 (7.0-16.0); BUN - UREA NITROGEN 24 mg/dL (7-25); CALCIUM SERUM 9.3 mg/dL (8.6-10.3); CHLORIDE 104 mEq/L (98-107); CREATININE - SERUM 0.9 mg/dL (0.6-1.2); GFR AFRICAN-AMERICAN > 60.0 ml/min (>90); GFR NON AFRICAN-AMERICAN > 60.0 ml/min; GLUCOSE 182 mg/dL (70-105); POTASSIUM SERUM 4.2 mEq/L (3.5-5.1); SODIUM SERUM 140 mEq/L (136-145)
[2018-08-21 06:58] LABS: INR 1.52 (0.5-1.4); PROTHROMBIN TIME (TEST) 15.5 SECONDS (9.5-11.5)
[2018-08-21] MEDS: Codeine/Promethazine Susp 5 mL UDC PO SCH ×3 (08:50→20:06)
[2018-08-21] MEDS ORDERED: Vancomycin HCl 1.5 GM in Sodium Chloride 0.9% 500 ML IV ONE (09:00)
[2018-08-21] MEDS ORDERED: Vancomycin HCl 1.5 GM in Sodium Chloride 0.9% 500 ML IV SCH (10:00)
--- NOTE | 2018-08-21 16:20 | History & Physical ---
ADMIT DATE: 08/20/2018 HISTORY OF PRESENT ILLNESS: A 68-year-old female patient with history of severe obesity, history of DVTs, history of bilateral leg swellings, history of hypothyroidism, and history of allergy to PENICILLIN and NAPROXEN. The patient has been complaining of severe pain and swelling to her right leg and the patient found to have severe cellulitis and the patient was admitted. The patient was started on vancomycin and Zosyn. PAST MEDICAL HISTORY: History of diabetes type 2, lymphoma, lymphedema, obesity, DVT of the right leg, and history of hypertension. MEDICATIONS: See the reconciliation sheet. SOCIAL HISTORY: The patient lives in nursing facility. PHYSICAL EXAMINATION: VITAL SIGNS: As noted in the chart. HEAD: Normal. ENT: Normal. LUNGS: Bilaterally decreased. CARDIOVASCULAR SYSTEM: S1, S2 heard. ABDOMEN: Soft. Bowel sounds are heard. EXTREMITIES: Right leg extremity swelling was noted. LABORATORY DATA: Recent white count was ____, hemoglobin of 13.8, hematocrit was 42. The patient's D-dimer was less than 1. Potassium was 4.3, bicarbonate 29, BUN was slightly high at 29. DIAGNOSES: Right leg cellulitis, bilateral leg edema, rule out lymphedema, history of diabetes type 2, history of possible edema, hypertension, obesity, chronic obstructive pulmonary disease, and hypothyroidism. PLAN: We will plan to workup the patient including blood culture, urine culture. Start her on penicillin, vancomycin, and Zosyn and I will follow the patient along with Dr. Daniel Keith ____. JOB# [id number]
--- NOTE | 2018-08-21 20:02 | General Progress Note ---
Subjective - Review of Systems Service Date: 08/21/18 Subjective: 68 y/o female patent is awake, c/o swelling and pain of right leg, has cellulitis of right leg. Objective - Results Result Diagrams: 08/22/18 07:00 08/22/18 07:00 Recent Labs: Laboratory Last Values WBC 4.4 Th/cmm (4.8-10.8) L 08/21/18 05:35 RBC 4.91 Mil/cmm (3.80-5.20) 08/21/18 05:35 Hgb 13.4 gm/dL (12-16) 08/21/18 05:35 Hct 39.7 % (41.0-60) L 08/21/18 05:35 MCV 80.9 fl (81-100) L 08/21/18 05:35 MCH 27.2 pg (27.0-31.0) 08/21/18 05:35 MCHC Differential 33.7 pg (28.0-36.0) 08/21/18 05:35 RDW 13.3 % (11.5-20.0) 08/21/18 05:35 Plt Count 157 Th/cmm (150-400) 08/21/18 05:35 MPV 7.0 fl 08/21/18 05:35 Neutrophils % 74.0 % (40.0-80.0) 08/21/18 05:35 Lymphocytes % 15.6 % (20.0-50.0) L 08/21/18 05:35 Monocytes % 10.1 % (2.0-10.0) H 08/21/18 05:35 Eosinophils % 0.2 % (0.0-5.0) 08/21/18 05:35 Basophils % 0.1 % (0.0-2.0) 08/21/18 05:35 ESR 25 mm/hr (0-30) 08/20/18 17:30 PT 15.5 SECONDS (9.5-11.5) H 08/21/18 05:35 INR 1.52 (0.5-1.4) H 08/21/18 05:35 PTT (Actin FS) 29.6 SECONDS (26.0-38.0) 08/21/18 05:35 D-Dimer < 100 ng/mL (100-400) L 08/20/18 17:30 Sodium 140 mEq/L (136-145) 08/21/18 05:35 Potassium 4.2 mEq/L (3.5-5.1) 08/21/18 05:35 Chloride 104 mEq/L (98-107) 08/21/18 05:35 Carbon Dioxide 26.0 mEq/L (21.0-31.0) 08/21/18 05:35 Anion Gap 14.2 (7.0-16.0) 08/21/18 05:35 BUN 24 mg/dL (7-25) 08/21/18 05:35 Creatinine 0.9 mg/dL (0.6-1.2) 08/21/18 05:35 Est GFR ( Amer) > 60.0 ml/min (>90) 08/21/18 05:35 Est GFR (Non-Af Amer) > 60.0 ml/min 08/21/18 05:35 BUN/Creatinine Ratio 26.7 08/21/18 05:35 Glucose 182 mg/dL (70-105) H 08/21/18 05:35 Calcium 9.3 mg/dL (8.6-10.3) 08/21/18 05:35 Phosphorus 3.3 mg/dL (2.5-5.0) 08/20/18 17:30 Magnesium 1.8 mg/dL (1.9-2.7) L 08/20/18 17:30 Total Bilirubin 0.5 mg/dL (0.3-1.0) 08/20/18 17:30 AST 24 U/L (13-39) 08/20/18 17:30 ALT 35 U/L (7-52) 08/20/18 17:30 Alkaline Phosphatase 48 U/L (34-104) 08/20/18 17:30 B-Natriuretic Peptide 28.0 pg/mL (5.0-100.0) 08/20/18 17:30 Total Protein 7.0 gm/dL (6.0-8.3) 08/20/18 17:30 Albumin 4.1 gm/dL (3.7-5.3) 08/20/18 17:30 Globulin 2.9 gm/dL 08/20/18 17:30 Albumin/Globulin Ratio 1.4 (1.0-1.8) 08/20/18 17:30 TSH 12.26 uIU/ml (0.34-5.60) H 08/21/18 05:35 Urine Source CLEAN C 08/20/18 18:34 Urine Color YELLOW 08/20/18 18:34 Urine Clarity CLEAR (CLEAR) 08/20/18 18:34 Urine pH 5.5 (4.6 - 8.0) 08/20/18 18:34 Ur Specific [place] 1.025 (1.005-1.030) 08/20/18 18:34 Urine Protein NEGATIVE mg/dL (NEGATIVE) 08/20/18 18:34 Urine Glucose (UA) NEGATIVE mg/dL (NEGATIVE) 08/20/18 18:34 Urine Ketones NEGATIVE mg/dL (NEGATIVE) 08/20/18 18:34 Urine Blood NEGATIVE (NEGATIVE) 08/20/18 18:34 Urine Nitrate NEGATIVE (NEGATIVE) 08/20/18 18:34 Urine Bilirubin NEGATIVE (NEGATIVE) 08/20/18 18:34 Urine Urobilinogen 0.2 E.U./dL (0.2 - 1.0) 08/20/18 18:34 Ur Leukocyte Esterase NEGATIVE (NEGATIVE) 08/20/18 18:34 Urine RBC NONE SEEN /hpf (0-5) 08/20/18 18:34 Urine WBC 0-2 /hpf (0-5) 08/20/18 18:34 Ur Epithelial Cells FEW /lpf (FEW) 08/20/18 18:34 Urine Bacteria FEW /hpf (NONE SEEN) 08/20/18 18:34 - Physical Exam Vitals and I&O: Vital Signs Temp 98.2 F 08/21/18 16:00 Pulse 71 08/21/18 16:00 Resp 20 08/21/18 16:00 BP 114/56 08/21/18 18:42 Pulse Ox 97 08/21/18 16:00 Intake & Output 08/21/18 08/21/18 08/22/18 06:59 18:59 06:59 Intake Total 250 720 Balance 250 720 Weight (lbs) 121.563 kg Intake: Intake, IV Amount 250 Vancomycin HCl 1 gm In 250 Sodium Chloride 0.9% 250 ml @ 165 mls/hr IV [facility] Rx#:[id number] Oral 720 Other: # Voids 3 Weight Source Patient stated Active Medications: Current Medications Acetaminophen (Tylenol) 650 mg PO Q4HR PRN PRN Reason: MILD PAIN, TEMP > 101F Stop: 10/19/18 21:19 Ascorbic Acid (Vitamin C) 500 mg PO DAILY [facility] Stop: 10/20/18 08:59 Last Admin: 08/21/18 08:50 Dose: 500 mg Bisacodyl (Dulcolax 10 Mg Supp) 10 mg RC DAILY PRN PRN Reason: IF MOM INEFFECTIVE Stop: 10/19/18 20:50 Docusate Sodium (Colace) 100 mg PO DAILY [facility] Stop: 10/20/18 08:59 Last Admin: 08/21/18 08:50 Dose: 100 mg Heparin Sodium (Porcine) (Heparin) 5,000 units SUBQ Q12HR [facility] Stop: 10/19/18 21:29 Last Admin: 08/21/18 08:50 Dose: 5,000 units Hydrochlorothiazide (Hctz) 25 mg PO BID [facility] Stop: 10/20/18 08:59 Last Admin: 08/21/18 18:42 Dose: 25 mg Vancomycin HCl 1.25 gm/ Sodium (Chloride) 250 mls @ 165 mls/hr IV Q12H [facility] Stop: 10/20/18 20:59 Levothyroxine Sodium (Synthroid) 0.075 mg PO QDAC [facility] Stop: 10/21/18 07:29 Miscellaneous (Vancomycin Iv Per Pharmacy) 1 ea MC PRN PRN PRN Reason: PROTOCOL Stop: 10/19/18 19:22 Promethazine HCl/Codeine (Phenergan W/Cod Susp) 5 ml PO TID [facility] Stop: 08/23/18 20:59 Last Admin: 08/21/18 15:00 Dose: Not Given Sodium Phosphate (Fleet Enema) 135 ml RC Q48H PRN PRN Reason: IF DULCOLAX INEFFECTIVE Stop: 10/19/18 20:52 General: Alert, No acute distress HEENT: Atraumatic, PERRLA Neck: Supple Cardiovascular: Normal S1 Lungs: Other (Scatterred rhonchi bilatreally) Abdomen: Bowel sounds, Soft Extremities: Edema, Other (Right leg pain and inflammation.) Neurological: Other (Altered Mental Status, Hx of Dementia.) Skin: Other (Redness and Cellulitis of right leg.) Psych/Mental Status: Other (Dis-oriented.) Assessment/Plan - Problem List Patient Problems: All Active Problems BILATERAL LOWER EXTREMITY EDEMA/REDNESS (Acute) - Assessment Assessment: Cellulitis/Inflammation and Pain of Right leg HTN Lymphoma Obesity DVT of right leg Diabetes - Plan Plan: Monitor patient closely Continue Antibiotics and present meds as directed Monitor Diabetic low sodium diet and nutritional support Monitor Pain,Pain Management Local Skin Care Fall precaution Supportive care CPM
[2018-08-22] MEDS ORDERED: Levofloxacin 750mg/150mL 750 MG/150 ML BAG IV SCH (03:00)
[2018-08-22] MEDS: Levothyroxine 0.075 Mg Tab PO SCH (06:41)
[2018-08-22 07:14] LABS: % EOSINOPHILS 0.3 % (0.0-5.0); % LYMPHOCYTES 19.6 % (20.0-50.0); % MONOCYTES 10.6 % (2.0-10.0); % NEUTROPHILS 69.5 % (40.0-80.0); HEMATOCRIT 37.8 % (41.0-60); HEMOGLOBIN 12.7 gm/dL (12-16); LYMPHOCYTE ABSOLUTE 0.9 Th/cmm (1.5-3.0); MEAN CELL VOLUME 81.3 fl (81-100); MEAN CORPUSCULAR HEMOGLOBIN 27.3 pg (27.0-31.0); MEAN CORPUSCULAR HGB CONC 33.6 pg (28.0-36.0); MONOCYTE ABSOLUTE 0.5 Th/cmm (0.3-1.0); PLATELET COUNT 140 Th/cmm (150-400); RED BLOOD COUNT 4.65 Mil/cmm (3.80-5.20); RED CELL DISTRIBUTION WIDTH 12.8 % (11.5-20.0); WHITE BLOOD COUNT 4.4 Th/cmm (4.8-10.8)
[2018-08-22 07:28] LABS: ANION GAP 11.2 (7.0-16.0); BUN - UREA NITROGEN 24 mg/dL (7-25); CALCIUM SERUM 9.1 mg/dL (8.6-10.3); CARBON DIOXIDE 28.1 mEq/L (21.0-31.0); CHLORIDE 104 mEq/L (98-107); GFR AFRICAN-AMERICAN > 60.0 ml/min (>90); GFR NON AFRICAN-AMERICAN 58.4 ml/min; GLUCOSE 176 mg/dL (70-105); POTASSIUM SERUM 4.3 mEq/L (3.5-5.1); SODIUM SERUM 139 mEq/L (136-145)
[2018-08-22 07:52] LABS: INR 1.21 (0.5-1.4); PROTHROMBIN TIME (TEST) 12.5 SECONDS (9.5-11.5)
[2018-08-22] MEDS: Codeine/Promethazine Susp 5 mL UDC PO SCH ×3 (10:06→22:19)
--- NOTE | 2018-08-22 13:18 | Infectious Disease Prog Note ---
Infectious Disease Subjective - Review of Systems Service Date: 08/22/18 Subjective: There is no new change, no fever. Infectious Disease Objective - Results Result Diagrams: 08/22/18 07:00 08/22/18 07:00 Recent Labs: Laboratory Last Values WBC 4.4 Th/cmm (4.8-10.8) L 08/22/18 07:00 RBC 4.65 Mil/cmm (3.80-5.20) 08/22/18 07:00 Hgb 12.7 gm/dL (12-16) 08/22/18 07:00 Hct 37.8 % (41.0-60) L 08/22/18 07:00 MCV 81.3 fl (81-100) 08/22/18 07:00 MCH 27.3 pg (27.0-31.0) 08/22/18 07:00 MCHC Differential 33.6 pg (28.0-36.0) 08/22/18 07:00 RDW 12.8 % (11.5-20.0) 08/22/18 07:00 Plt Count 140 Th/cmm (150-400) L 08/22/18 07:00 MPV 7.0 fl 08/22/18 07:00 Neutrophils % 69.5 % (40.0-80.0) 08/22/18 07:00 Lymphocytes % 19.6 % (20.0-50.0) L 08/22/18 07:00 Monocytes % 10.6 % (2.0-10.0) H 08/22/18 07:00 Eosinophils % 0.3 % (0.0-5.0) 08/22/18 07:00 Basophils % 0.0 % (0.0-2.0) 08/22/18 07:00 ESR 25 mm/hr (0-30) 08/20/18 17:30 PT 12.5 SECONDS (9.5-11.5) H 08/22/18 07:00 INR 1.21 (0.5-1.4) 08/22/18 07:00 PTT (Actin FS) 28.3 SECONDS (26.0-38.0) 08/22/18 07:00 D-Dimer < 100 ng/mL (100-400) L 08/20/18 17:30 Sodium 139 mEq/L (136-145) 08/22/18 07:00 Potassium 4.3 mEq/L (3.5-5.1) 08/22/18 07:00 Chloride 104 mEq/L (98-107) 08/22/18 07:00 Carbon Dioxide 28.1 mEq/L (21.0-31.0) 08/22/18 07:00 Anion Gap 11.2 (7.0-16.0) 08/22/18 07:00 BUN 24 mg/dL (7-25) 08/22/18 07:00 Creatinine 1.0 mg/dL (0.6-1.2) 08/22/18 07:00 Est GFR ( Amer) > 60.0 ml/min (>90) 08/22/18 07:00 Est GFR (Non-Af Amer) 58.4 ml/min 08/22/18 07:00 BUN/Creatinine Ratio 24.0 08/22/18 07:00 Glucose 176 mg/dL (70-105) H 08/22/18 07:00 Calcium 9.1 mg/dL (8.6-10.3) 08/22/18 07:00 Phosphorus 3.3 mg/dL (2.5-5.0) 08/20/18 17:30 Magnesium 1.8 mg/dL (1.9-2.7) L 08/20/18 17:30 Total Bilirubin 0.5 mg/dL (0.3-1.0) 08/20/18 17:30 AST 24 U/L (13-39) 08/20/18 17:30 ALT 35 U/L (7-52) 08/20/18 17:30 Alkaline Phosphatase 48 U/L (34-104) 08/20/18 17:30 B-Natriuretic Peptide 28.0 pg/mL (5.0-100.0) 08/20/18 17:30 Total Protein 7.0 gm/dL (6.0-8.3) 08/20/18 17:30 Albumin 4.1 gm/dL (3.7-5.3) 08/20/18 17:30 Globulin 2.9 gm/dL 08/20/18 17:30 Albumin/Globulin Ratio 1.4 (1.0-1.8) 08/20/18 17:30 TSH 12.26 uIU/ml (0.34-5.60) H 08/21/18 05:35 Urine Source CLEAN C 08/20/18 18:34 Urine Color YELLOW 08/20/18 18:34 Urine Clarity CLEAR (CLEAR) 08/20/18 18:34 Urine pH 5.5 (4.6 - 8.0) 08/20/18 18:34 Ur Specific [place] 1.025 (1.005-1.030) 08/20/18 18:34 Urine Protein NEGATIVE mg/dL (NEGATIVE) 08/20/18 18:34 Urine Glucose (UA) NEGATIVE mg/dL (NEGATIVE) 08/20/18 18:34 Urine Ketones NEGATIVE mg/dL (NEGATIVE) 08/20/18 18:34 Urine Blood NEGATIVE (NEGATIVE) 08/20/18 18:34 Urine Nitrate NEGATIVE (NEGATIVE) 08/20/18 18:34 Urine Bilirubin NEGATIVE (NEGATIVE) 08/20/18 18:34 Urine Urobilinogen 0.2 E.U./dL (0.2 - 1.0) 08/20/18 18:34 Ur Leukocyte Esterase NEGATIVE (NEGATIVE) 08/20/18 18:34 Urine RBC NONE SEEN /hpf (0-5) 08/20/18 18:34 Urine WBC 0-2 /hpf (0-5) 08/20/18 18:34 Ur Epithelial Cells FEW /lpf (FEW) 08/20/18 18:34 Urine Bacteria FEW /hpf (NONE SEEN) 08/20/18 18:34 Vancomycin Trough 21.9 ug/mL (5-10) H 08/22/18 07:00 - Physical Exam Vitals and I&O: Vital Signs Temp 98.2 F 08/22/18 13:01 Pulse 75 08/22/18 13:01 Resp 19 08/22/18 13:01 BP 104/55 08/22/18 13:01 Pulse Ox 97 08/22/18 13:01 Intake & Output 08/21/18 08/22/18 08/22/18 18:59 06:59 18:59 Intake Total 720 490 Balance 720 490 Weight (lbs) 121.563 kg 121.563 kg Intake: Intake, IV Amount 250 Vancomycin HCl 1.25 gm In 250 Sodium Chloride 0.9% 250 ml @ 165 mls/hr IV Q12H [facility] Rx#:[id number] Oral 720 240 Other: # Voids 3 2 # Bowel Movements 0 Weight Source Patient stated Patient stated Active Medications: Current Medications Acetaminophen (Tylenol) 650 mg PO Q4HR PRN PRN Reason: MILD PAIN, TEMP > 101F Stop: 10/19/18 21:19 Ascorbic Acid (Vitamin C) 500 mg PO DAILY [facility] Stop: 10/20/18 08:59 Last Admin: 08/22/18 10:05 Dose: 500 mg Bisacodyl (Dulcolax 10 Mg Supp) 10 mg RC DAILY PRN PRN Reason: IF MOM INEFFECTIVE Stop: 10/19/18 20:50 Docusate Sodium (Colace) 100 mg PO DAILY [facility] Stop: 10/20/18 08:59 Last Admin: 08/22/18 10:06 Dose: 100 mg Heparin Sodium (Porcine) (Heparin) 5,000 units SUBQ Q12HR [facility] Stop: 10/19/18 21:29 Last Admin: 08/22/18 09:59 Dose: Not Given Hydrochlorothiazide (Hctz) 25 mg PO BID [facility] Stop: 10/20/18 08:59 Last Admin: 08/22/18 10:05 Dose: 25 mg Vancomycin HCl 1.25 gm/ Sodium (Chloride) 250 mls @ 165 mls/hr IV Q12H [facility] Stop: 10/20/18 20:59 Last Admin: 08/22/18 10:28 Dose: 165 mls/hr Levothyroxine Sodium (Synthroid) 0.075 mg PO QDAC [facility] Stop: 10/21/18 07:29 Last Admin: 08/22/18 06:41 Dose: 0.075 mg Miscellaneous (Vancomycin Iv Per Pharmacy) 1 ea PRN PRN PRN Reason: PROTOCOL Stop: 10/19/18 19:22 Promethazine HCl/Codeine (Phenergan W/Cod Susp) 5 ml PO TID [facility] Stop: 08/23/18 20:59 Last Admin: 08/22/18 10:06 Dose: 5 ml Sodium Phosphate (Fleet Enema) 135 ml RC Q48H PRN PRN Reason: IF DULCOLAX INEFFECTIVE Stop: 10/19/18 20:52 Warfarin Sodium (Coumadin Per Pharmacy) 1 ea PRN PRN; Protocol PRN Reason: RX MONITORING Stop: 10/20/18 20:38 General: no acute distress, well developed, well nourished HEENT: atraumatic, normocephalic, PERRLA, EOMI Neck: supple, no thyromegaly Cardiovascular: S1S2, regular Lungs: clear to auscultation bilaterally, clear to percussion Abdomen: soft, no tender, no distended Extremities: other (right leg redness is same.), no cyanosis, no clubbing, no edema Neurological: awake, alert, oriented Skin: intact Infectious Disease Assmt/Plan - Problem List Patient Problems: All Active Problems BILATERAL LOWER EXTREMITY EDEMA/REDNESS (Acute) - Assessment Assessment: 1. Cellulitis of right leg. 2. Obesity. 3. DM2. - Plan Plan: Continue rocephin. apply steroid cream to the right leg. LTAC eval.
--- NOTE | 2018-08-22 13:57 | Internal Medicine Prog Note ---
Internal Medicine Subjective - Subjective Service Date: 08/22/18 Patient seen and examined:: with staff Patient is:: awake Per staff patient has:: tolerating meds Internal Medicine Objective - Results Result Diagrams: 08/22/18 07:00 08/22/18 07:00 Recent Labs: Laboratory Last Values WBC 4.4 Th/cmm (4.8-10.8) L 08/22/18 07:00 RBC 4.65 Mil/cmm (3.80-5.20) 08/22/18 07:00 Hgb 12.7 gm/dL (12-16) 08/22/18 07:00 Hct 37.8 % (41.0-60) L 08/22/18 07:00 MCV 81.3 fl (81-100) 08/22/18 07:00 MCH 27.3 pg (27.0-31.0) 08/22/18 07:00 MCHC Differential 33.6 pg (28.0-36.0) 08/22/18 07:00 RDW 12.8 % (11.5-20.0) 08/22/18 07:00 Plt Count 140 Th/cmm (150-400) L 08/22/18 07:00 MPV 7.0 fl 08/22/18 07:00 Neutrophils % 69.5 % (40.0-80.0) 08/22/18 07:00 Lymphocytes % 19.6 % (20.0-50.0) L 08/22/18 07:00 Monocytes % 10.6 % (2.0-10.0) H 08/22/18 07:00 Eosinophils % 0.3 % (0.0-5.0) 08/22/18 07:00 Basophils % 0.0 % (0.0-2.0) 08/22/18 07:00 ESR 25 mm/hr (0-30) 08/20/18 17:30 PT 12.5 SECONDS (9.5-11.5) H 08/22/18 07:00 INR 1.21 (0.5-1.4) 08/22/18 07:00 PTT (Actin FS) 28.3 SECONDS (26.0-38.0) 08/22/18 07:00 D-Dimer < 100 ng/mL (100-400) L 08/20/18 17:30 Sodium 139 mEq/L (136-145) 08/22/18 07:00 Potassium 4.3 mEq/L (3.5-5.1) 08/22/18 07:00 Chloride 104 mEq/L (98-107) 08/22/18 07:00 Carbon Dioxide 28.1 mEq/L (21.0-31.0) 08/22/18 07:00 Anion Gap 11.2 (7.0-16.0) 08/22/18 07:00 BUN 24 mg/dL (7-25) 08/22/18 07:00 Creatinine 1.0 mg/dL (0.6-1.2) 08/22/18 07:00 Est GFR ( Amer) > 60.0 ml/min (>90) 08/22/18 07:00 Est GFR (Non-Af Amer) 58.4 ml/min 08/22/18 07:00 BUN/Creatinine Ratio 24.0 08/22/18 07:00 Glucose 176 mg/dL (70-105) H 08/22/18 07:00 Calcium 9.1 mg/dL (8.6-10.3) 08/22/18 07:00 Phosphorus 3.3 mg/dL (2.5-5.0) 08/20/18 17:30 Magnesium 1.8 mg/dL (1.9-2.7) L 08/20/18 17:30 Total Bilirubin 0.5 mg/dL (0.3-1.0) 08/20/18 17:30 AST 24 U/L (13-39) 08/20/18 17:30 ALT 35 U/L (7-52) 08/20/18 17:30 Alkaline Phosphatase 48 U/L (34-104) 08/20/18 17:30 B-Natriuretic Peptide 28.0 pg/mL (5.0-100.0) 08/20/18 17:30 Total Protein 7.0 gm/dL (6.0-8.3) 08/20/18 17:30 Albumin 4.1 gm/dL (3.7-5.3) 08/20/18 17:30 Globulin 2.9 gm/dL 08/20/18 17:30 Albumin/Globulin Ratio 1.4 (1.0-1.8) 08/20/18 17:30 TSH 12.26 uIU/ml (0.34-5.60) H 08/21/18 05:35 Urine Source CLEAN C 08/20/18 18:34 Urine Color YELLOW 08/20/18 18:34 Urine Clarity CLEAR (CLEAR) 08/20/18 18:34 Urine pH 5.5 (4.6 - 8.0) 08/20/18 18:34 Ur Specific [place] 1.025 (1.005-1.030) 08/20/18 18:34 Urine Protein NEGATIVE mg/dL (NEGATIVE) 08/20/18 18:34 Urine Glucose (UA) NEGATIVE mg/dL (NEGATIVE) 08/20/18 18:34 Urine Ketones NEGATIVE mg/dL (NEGATIVE) 08/20/18 18:34 Urine Blood NEGATIVE (NEGATIVE) 08/20/18 18:34 Urine Nitrate NEGATIVE (NEGATIVE) 08/20/18 18:34 Urine Bilirubin NEGATIVE (NEGATIVE) 08/20/18 18:34 Urine Urobilinogen 0.2 E.U./dL (0.2 - 1.0) 08/20/18 18:34 Ur Leukocyte Esterase NEGATIVE (NEGATIVE) 08/20/18 18:34 Urine RBC NONE SEEN /hpf (0-5) 08/20/18 18:34 Urine WBC 0-2 /hpf (0-5) 08/20/18 18:34 Ur Epithelial Cells FEW /lpf (FEW) 08/20/18 18:34 Urine Bacteria FEW /hpf (NONE SEEN) 08/20/18 18:34 Vancomycin Trough 21.9 ug/mL (5-10) H 08/22/18 07:00 - Physical Exam Vitals and I&O: Vital Signs Temp 98.2 F 08/22/18 13:01 Pulse 75 08/22/18 13:01 Resp 19 08/22/18 13:01 BP 104/55 08/22/18 13:01 Pulse Ox 97 08/22/18 13:01 Intake & Output 08/21/18 08/22/18 08/22/18 18:59 06:59 18:59 Intake Total 720 490 Balance 720 490 Weight (lbs) 268 lb 268 lb Intake: Intake, IV Amount 250 Vancomycin HCl 1.25 gm In 250 Sodium Chloride 0.9% 250 ml @ 165 mls/hr IV Q12H [facility] Rx#:[id number] Oral 720 240 Other: # Voids 3 2 # Bowel Movements 0 Weight Source Patient stated Patient stated Active Medications: Current Medications Acetaminophen (Tylenol) 650 mg PO Q4HR PRN PRN Reason: MILD PAIN, TEMP > 101F Stop: 10/19/18 21:19 Ascorbic Acid (Vitamin C) 500 mg PO DAILY [facility] Stop: 10/20/18 08:59 Last Admin: 08/22/18 10:05 Dose: 500 mg Betamethasone Valerate (Valisone 0.1% Cream) 1 appl TP DAILY [facility] Stop: 10/22/18 08:59 Bisacodyl (Dulcolax 10 Mg Supp) 10 mg RC DAILY PRN PRN Reason: IF MOM INEFFECTIVE Stop: 10/19/18 20:50 Docusate Sodium (Colace) 100 mg PO DAILY [facility] Stop: 10/20/18 08:59 Last Admin: 08/22/18 10:06 Dose: 100 mg Heparin Sodium (Porcine) (Heparin) 5,000 units SUBQ Q12HR [facility] Stop: 10/19/18 21:29 Last Admin: 08/22/18 09:59 Dose: Not Given Hydrochlorothiazide (Hctz) 25 mg PO BID [facility] Stop: 10/20/18 08:59 Last Admin: 08/22/18 10:05 Dose: 25 mg Vancomycin HCl 1.25 gm/ Sodium (Chloride) 250 mls @ 165 mls/hr IV Q12H [facility] Stop: 10/20/18 20:59 Last Admin: 08/22/18 10:28 Dose: 165 mls/hr Levofloxacin (Levaquin Pb) 750 mg in 150 mls @ 100 mls/hr IV Q48H [facility] Stop: 10/21/18 14:59 Levothyroxine Sodium (Synthroid) 0.075 mg PO QDAC [facility] Stop: 10/21/18 07:29 Last Admin: 08/22/18 06:41 Dose: 0.075 mg Miscellaneous (Vancomycin Iv Per Pharmacy) 1 ea MC PRN PRN PRN Reason: PROTOCOL Stop: 10/19/18 19:22 Promethazine HCl/Codeine (Phenergan W/Cod Susp) 5 ml PO TID [facility] Stop: 08/23/18 20:59 Last Admin: 08/22/18 13:39 Dose: 5 ml Sodium Phosphate (Fleet Enema) 135 ml RC Q48H PRN PRN Reason: IF DULCOLAX INEFFECTIVE Stop: 10/19/18 20:52 Warfarin Sodium (Coumadin Per Pharmacy) 1 ea MC PRN PRN; Protocol PRN Reason: RX MONITORING Stop: 10/20/18 20:38
[2018-08-22] MEDS: Levofloxacin IVPB 750mg/150mL Premix Bag IV SCH (16:08)
[2018-08-23] MEDS: Levothyroxine 0.075 Mg Tab PO SCH (06:34)
[2018-08-23 07:12] LABS: INR 1.13 (0.5-1.4); PROTHROMBIN TIME (TEST) 11.6 SECONDS (9.5-11.5)
[2018-08-23 07:13] LABS: % EOSINOPHILS 0.1 % (0.0-5.0); MEAN PLATELET VOLUME 6.8 fl; MONOCYTE ABSOLUTE 0.5 Th/cmm (0.3-1.0); NEUTROPHILE ABSOLUTE 3.7 Th/cmm (1.8-8.0)
[2018-08-23 07:18] LABS: % LYMPHOCYTES 17.2 % (20.0-50.0); % MONOCYTES 9.3 % (2.0-10.0); % NEUTROPHILS 73.4 % (40.0-80.0); HEMOGLOBIN 12.9 gm/dL (12-16); LYMPHOCYTE ABSOLUTE 0.9 Th/cmm (1.5-3.0); MEAN CELL VOLUME 80.9 fl (81-100); MEAN CORPUSCULAR HEMOGLOBIN 27.4 pg (27.0-31.0); MEAN CORPUSCULAR HGB CONC 33.9 pg (28.0-36.0); PLATELET COUNT 127 Th/cmm (150-400); RED BLOOD COUNT 4.69 Mil/cmm (3.80-5.20); RED CELL DISTRIBUTION WIDTH 12.8 % (11.5-20.0); WHITE BLOOD COUNT 5.1 Th/cmm (4.8-10.8)
[2018-08-23 07:23] LABS: ALB/GLOB RATIO 1.4 (1.0-1.8); ALBUMIN 3.6 gm/dL (3.7-5.3); ALKALINE PHOSPHATASE 46 U/L (34-104); ANION GAP 11.6 (7.0-16.0); BILIRUBIN,TOTAL 0.6 mg/dL (0.3-1.0); BUN - UREA NITROGEN 21 mg/dL (7-25); CALCIUM SERUM 9.1 mg/dL (8.6-10.3); CARBON DIOXIDE 27.6 mEq/L (21.0-31.0); CHLORIDE 104 mEq/L (98-107); GFR AFRICAN-AMERICAN > 60.0 ml/min (>90); GFR NON AFRICAN-AMERICAN 58.4 ml/min; GLUCOSE 194 mg/dL (70-105); POTASSIUM SERUM 4.2 mEq/L (3.5-5.1); SGOT 19 U/L (13-39); SGPT/ALT 28 U/L (7-52); SODIUM SERUM 139 mEq/L (136-145); TOTAL PROTEIN,SERUM 6.1 gm/dL (6.0-8.3)
[2018-08-23] MEDS: Codeine/Promethazine Susp 5 mL UDC PO SCH ×2 (08:22→17:58)
--- NOTE | 2018-08-23 14:02 | Infectious Disease Prog Note ---
Infectious Disease Subjective - Review of Systems Service Date: 08/23/18 Subjective: There is no new change, no fever. Infectious Disease Objective - Results Result Diagrams: 08/23/18 06:30 08/23/18 06:30 Recent Labs: Laboratory Last Values WBC 5.1 Th/cmm (4.8-10.8) 08/23/18 06:30 RBC 4.69 Mil/cmm (3.80-5.20) 08/23/18 06:30 Hgb 12.9 gm/dL (12-16) 08/23/18 06:30 Hct 38.0 % (41.0-60) L 08/23/18 06:30 MCV 80.9 fl (81-100) L 08/23/18 06:30 MCH 27.4 pg (27.0-31.0) 08/23/18 06:30 MCHC Differential 33.9 pg (28.0-36.0) 08/23/18 06:30 RDW 12.8 % (11.5-20.0) 08/23/18 06:30 Plt Count 127 Th/cmm (150-400) L 08/23/18 06:30 MPV 6.8 fl 08/23/18 06:30 Neutrophils % 73.4 % (40.0-80.0) 08/23/18 06:30 Lymphocytes % 17.2 % (20.0-50.0) L 08/23/18 06:30 Monocytes % 9.3 % (2.0-10.0) 08/23/18 06:30 Eosinophils % 0.1 % (0.0-5.0) 08/23/18 06:30 Basophils % 0.0 % (0.0-2.0) 08/23/18 06:30 ESR 25 mm/hr (0-30) 08/20/18 17:30 PT 11.6 SECONDS (9.5-11.5) H 08/23/18 06:30 INR 1.13 (0.5-1.4) 08/23/18 06:30 PTT (Actin FS) 28.3 SECONDS (26.0-38.0) 08/22/18 07:00 D-Dimer < 100 ng/mL (100-400) L 08/20/18 17:30 Sodium 139 mEq/L (136-145) 08/23/18 06:30 Potassium 4.2 mEq/L (3.5-5.1) 08/23/18 06:30 Chloride 104 mEq/L (98-107) 08/23/18 06:30 Carbon Dioxide 27.6 mEq/L (21.0-31.0) 08/23/18 06:30 Anion Gap 11.6 (7.0-16.0) 08/23/18 06:30 BUN 21 mg/dL (7-25) 08/23/18 06:30 Creatinine 1.0 mg/dL (0.6-1.2) 08/23/18 06:30 Est GFR ( Amer) > 60.0 ml/min (>90) 08/23/18 06:30 Est GFR (Non-Af Amer) 58.4 ml/min 08/23/18 06:30 BUN/Creatinine Ratio 21.0 08/23/18 06:30 Glucose 194 mg/dL (70-105) H 08/23/18 06:30 Calcium 9.1 mg/dL (8.6-10.3) 08/23/18 06:30 Phosphorus 3.3 mg/dL (2.5-5.0) 08/20/18 17:30 Magnesium 1.8 mg/dL (1.9-2.7) L 08/20/18 17:30 Total Bilirubin 0.6 mg/dL (0.3-1.0) 08/23/18 06:30 AST 19 U/L (13-39) 08/23/18 06:30 ALT 28 U/L (7-52) 08/23/18 06:30 Alkaline Phosphatase 46 U/L (34-104) 08/23/18 06:30 B-Natriuretic Peptide 28.0 pg/mL (5.0-100.0) 08/20/18 17:30 Total Protein 6.1 gm/dL (6.0-8.3) 08/23/18 06:30 Albumin 3.6 gm/dL (3.7-5.3) L 08/23/18 06:30 Globulin 2.5 gm/dL 08/23/18 06:30 Albumin/Globulin Ratio 1.4 (1.0-1.8) 08/23/18 06:30 TSH 12.26 uIU/ml (0.34-5.60) H 08/21/18 05:35 Urine Source CLEAN C 08/20/18 18:34 Urine Color YELLOW 08/20/18 18:34 Urine Clarity CLEAR (CLEAR) 08/20/18 18:34 Urine pH 5.5 (4.6 - 8.0) 08/20/18 18:34 Ur Specific [place] 1.025 (1.005-1.030) 08/20/18 18:34 Urine Protein NEGATIVE mg/dL (NEGATIVE) 08/20/18 18:34 Urine Glucose (UA) NEGATIVE mg/dL (NEGATIVE) 08/20/18 18:34 Urine Ketones NEGATIVE mg/dL (NEGATIVE) 08/20/18 18:34 Urine Blood NEGATIVE (NEGATIVE) 08/20/18 18:34 Urine Nitrate NEGATIVE (NEGATIVE) 08/20/18 18:34 Urine Bilirubin NEGATIVE (NEGATIVE) 08/20/18 18:34 Urine Urobilinogen 0.2 E.U./dL (0.2 - 1.0) 08/20/18 18:34 Ur Leukocyte Esterase NEGATIVE (NEGATIVE) 08/20/18 18:34 Urine RBC NONE SEEN /hpf (0-5) 08/20/18 18:34 Urine WBC 0-2 /hpf (0-5) 08/20/18 18:34 Ur Epithelial Cells FEW /lpf (FEW) 08/20/18 18:34 Urine Bacteria FEW /hpf (NONE SEEN) 08/20/18 18:34 Vancomycin Trough 21.9 ug/mL (5-10) H 08/22/18 07:00 - Physical Exam Vitals and I&O: Vital Signs Temp 96.9 F 08/23/18 12:00 Pulse 74 08/23/18 12:00 Resp 20 08/23/18 12:00 BP 124/64 08/23/18 12:00 Pulse Ox 93 08/23/18 12:00 Intake & Output 08/22/18 08/23/18 08/23/18 18:59 06:59 18:59 Intake Total 920 Balance 920 Weight (lbs) 121.563 kg Intake: Intake, IV Amount 250 Vancomycin HCl 1 gm In 250 Sodium Chloride 0.9% 250 ml @ 165 mls/hr IV Q12HR [facility] Rx#:[id number] Oral 670 Other: # Voids 4 # Bowel Movements 0 Weight Source Bedscale Active Medications: Current Medications Acetaminophen (Tylenol) 650 mg PO Q4HR PRN PRN Reason: MILD PAIN, TEMP > 101F Stop: 10/19/18 21:19 Last Admin: 08/22/18 19:04 Dose: 650 mg Ascorbic Acid (Vitamin C) 500 mg PO DAILY [facility] Stop: 10/20/18 08:59 Last Admin: 08/23/18 08:22 Dose: 500 mg Betamethasone Valerate (Valisone 0.1% Cream) 1 appl TP DAILY [facility] Stop: 10/22/18 08:59 Last Admin: 08/23/18 08:35 Dose: 1 appl Bisacodyl (Dulcolax 10 Mg Supp) 10 mg RC DAILY PRN PRN Reason: IF MOM INEFFECTIVE Stop: 10/19/18 20:50 Docusate Sodium (Colace) 100 mg PO DAILY [facility] Stop: 10/20/18 08:59 Last Admin: 08/23/18 08:35 Dose: 100 mg Heparin Sodium (Porcine) (Heparin) 5,000 units SUBQ Q12HR [facility] Stop: 10/19/18 21:29 Last Admin: 08/22/18 21:30 Dose: Not Given Hydrochlorothiazide (Hctz) 25 mg PO BID [facility] Stop: 10/20/18 08:59 Last Admin: 08/23/18 08:24 Dose: 25 mg Levofloxacin (Levaquin Pb) 750 mg in 150 mls @ 100 mls/hr IV Q48H [facility] Stop: 10/21/18 14:59 Last Admin: 08/22/18 16:08 Dose: 100 mls/hr Vancomycin HCl 1 gm/ Sodium (Chloride) 250 mls @ 165 mls/hr IV Q12HR [facility] Stop: 10/21/18 20:59 Last Admin: 08/23/18 08:35 Dose: 165 mls/hr Levothyroxine Sodium (Synthroid) 0.075 mg PO QDAC [facility] Stop: 10/21/18 07:29 Last Admin: 08/23/18 06:34 Dose: 0.075 mg Miscellaneous (Vancomycin Iv Per Pharmacy) 1 ea MC PRN PRN PRN Reason: PROTOCOL Stop: 10/19/18 19:22 Promethazine HCl/Codeine (Phenergan W/Cod Susp) 5 ml PO TID [facility] Stop: 08/23/18 20:59 Last Admin: 08/23/18 08:22 Dose: 5 ml Sodium Phosphate (Fleet Enema) 135 ml RC Q48H PRN PRN Reason: IF DULCOLAX INEFFECTIVE Stop: 10/19/18 20:52 Warfarin Sodium (Coumadin Per Pharmacy) 1 ea MC PRN PRN; Protocol PRN Reason: RX MONITORING Stop: 10/20/18 20:38 General: no acute distress, well developed, well nourished HEENT: atraumatic, normocephalic, PERRLA, EOMI Neck: supple, no thyromegaly Cardiovascular: S1S2, regular Lungs: clear to auscultation bilaterally, clear to percussion Abdomen: soft, no tender, no distended, no rebound Extremities: no cyanosis, no clubbing, no edema Neurological: awake, alert, oriented Skin: intact Infectious Disease Assmt/Plan - Problem List Patient Problems: All Active Problems BILATERAL LOWER EXTREMITY EDEMA/REDNESS (Acute) - Assessment Assessment: 1. Cellulitis of right leg. 2. Obesity. 3. DM2. - Plan Plan: Continue rocephin. apply steroid cream to the right leg. LTAC eval.
--- NOTE | 2018-08-23 14:13 | Infectious Disease Prog Note ---
Infectious Disease Subjective - Review of Systems Service Date: 08/23/18 Subjective: There is no new change, no fever. Infectious Disease Objective - Results Result Diagrams: 08/23/18 06:30 08/23/18 06:30 Recent Labs: Laboratory Last Values WBC 5.1 Th/cmm (4.8-10.8) 08/23/18 06:30 RBC 4.69 Mil/cmm (3.80-5.20) 08/23/18 06:30 Hgb 12.9 gm/dL (12-16) 08/23/18 06:30 Hct 38.0 % (41.0-60) L 08/23/18 06:30 MCV 80.9 fl (81-100) L 08/23/18 06:30 MCH 27.4 pg (27.0-31.0) 08/23/18 06:30 MCHC Differential 33.9 pg (28.0-36.0) 08/23/18 06:30 RDW 12.8 % (11.5-20.0) 08/23/18 06:30 Plt Count 127 Th/cmm (150-400) L 08/23/18 06:30 MPV 6.8 fl 08/23/18 06:30 Neutrophils % 73.4 % (40.0-80.0) 08/23/18 06:30 Lymphocytes % 17.2 % (20.0-50.0) L 08/23/18 06:30 Monocytes % 9.3 % (2.0-10.0) 08/23/18 06:30 Eosinophils % 0.1 % (0.0-5.0) 08/23/18 06:30 Basophils % 0.0 % (0.0-2.0) 08/23/18 06:30 ESR 25 mm/hr (0-30) 08/20/18 17:30 PT 11.6 SECONDS (9.5-11.5) H 08/23/18 06:30 INR 1.13 (0.5-1.4) 08/23/18 06:30 PTT (Actin FS) 28.3 SECONDS (26.0-38.0) 08/22/18 07:00 D-Dimer < 100 ng/mL (100-400) L 08/20/18 17:30 Sodium 139 mEq/L (136-145) 08/23/18 06:30 Potassium 4.2 mEq/L (3.5-5.1) 08/23/18 06:30 Chloride 104 mEq/L (98-107) 08/23/18 06:30 Carbon Dioxide 27.6 mEq/L (21.0-31.0) 08/23/18 06:30 Anion Gap 11.6 (7.0-16.0) 08/23/18 06:30 BUN 21 mg/dL (7-25) 08/23/18 06:30 Creatinine 1.0 mg/dL (0.6-1.2) 08/23/18 06:30 Est GFR ( Amer) > 60.0 ml/min (>90) 08/23/18 06:30 Est GFR (Non-Af Amer) 58.4 ml/min 08/23/18 06:30 BUN/Creatinine Ratio 21.0 08/23/18 06:30 Glucose 194 mg/dL (70-105) H 08/23/18 06:30 Calcium 9.1 mg/dL (8.6-10.3) 08/23/18 06:30 Phosphorus 3.3 mg/dL (2.5-5.0) 08/20/18 17:30 Magnesium 1.8 mg/dL (1.9-2.7) L 08/20/18 17:30 Total Bilirubin 0.6 mg/dL (0.3-1.0) 08/23/18 06:30 AST 19 U/L (13-39) 08/23/18 06:30 ALT 28 U/L (7-52) 08/23/18 06:30 Alkaline Phosphatase 46 U/L (34-104) 08/23/18 06:30 B-Natriuretic Peptide 28.0 pg/mL (5.0-100.0) 08/20/18 17:30 Total Protein 6.1 gm/dL (6.0-8.3) 08/23/18 06:30 Albumin 3.6 gm/dL (3.7-5.3) L 08/23/18 06:30 Globulin 2.5 gm/dL 08/23/18 06:30 Albumin/Globulin Ratio 1.4 (1.0-1.8) 08/23/18 06:30 TSH 12.26 uIU/ml (0.34-5.60) H 08/21/18 05:35 Urine Source CLEAN C 08/20/18 18:34 Urine Color YELLOW 08/20/18 18:34 Urine Clarity CLEAR (CLEAR) 08/20/18 18:34 Urine pH 5.5 (4.6 - 8.0) 08/20/18 18:34 Ur Specific [place] 1.025 (1.005-1.030) 08/20/18 18:34 Urine Protein NEGATIVE mg/dL (NEGATIVE) 08/20/18 18:34 Urine Glucose (UA) NEGATIVE mg/dL (NEGATIVE) 08/20/18 18:34 Urine Ketones NEGATIVE mg/dL (NEGATIVE) 08/20/18 18:34 Urine Blood NEGATIVE (NEGATIVE) 08/20/18 18:34 Urine Nitrate NEGATIVE (NEGATIVE) 08/20/18 18:34 Urine Bilirubin NEGATIVE (NEGATIVE) 08/20/18 18:34 Urine Urobilinogen 0.2 E.U./dL (0.2 - 1.0) 08/20/18 18:34 Ur Leukocyte Esterase NEGATIVE (NEGATIVE) 08/20/18 18:34 Urine RBC NONE SEEN /hpf (0-5) 08/20/18 18:34 Urine WBC 0-2 /hpf (0-5) 08/20/18 18:34 Ur Epithelial Cells FEW /lpf (FEW) 08/20/18 18:34 Urine Bacteria FEW /hpf (NONE SEEN) 08/20/18 18:34 Vancomycin Trough 21.9 ug/mL (5-10) H 08/22/18 07:00 - Physical Exam Vitals and I&O: Vital Signs Temp 96.9 F 08/23/18 12:00 Pulse 74 08/23/18 12:00 Resp 20 08/23/18 12:00 BP 124/64 08/23/18 12:00 Pulse Ox 93 08/23/18 12:00 Intake & Output 08/22/18 08/23/18 08/23/18 18:59 06:59 18:59 Intake Total 920 Balance 920 Weight (lbs) 121.563 kg Intake: Intake, IV Amount 250 Vancomycin HCl 1 gm In 250 Sodium Chloride 0.9% 250 ml @ 165 mls/hr IV Q12HR [facility] Rx#:[id number] Oral 670 Other: # Voids 4 # Bowel Movements 0 Weight Source Bedscale Active Medications: Current Medications Acetaminophen (Tylenol) 650 mg PO Q4HR PRN PRN Reason: MILD PAIN, TEMP > 101F Stop: 10/19/18 21:19 Last Admin: 08/22/18 19:04 Dose: 650 mg Ascorbic Acid (Vitamin C) 500 mg PO DAILY [facility] Stop: 10/20/18 08:59 Last Admin: 08/23/18 08:22 Dose: 500 mg Betamethasone Valerate (Valisone 0.1% Cream) 1 appl TP DAILY [facility] Stop: 10/22/18 08:59 Last Admin: 08/23/18 08:35 Dose: 1 appl Bisacodyl (Dulcolax 10 Mg Supp) 10 mg RC DAILY PRN PRN Reason: IF MOM INEFFECTIVE Stop: 10/19/18 20:50 Docusate Sodium (Colace) 100 mg PO DAILY [facility] Stop: 10/20/18 08:59 Last Admin: 08/23/18 08:35 Dose: 100 mg Heparin Sodium (Porcine) (Heparin) 5,000 units SUBQ Q12HR [facility] Stop: 10/19/18 21:29 Last Admin: 08/22/18 21:30 Dose: Not Given Hydrochlorothiazide (Hctz) 25 mg PO BID [facility] Stop: 10/20/18 08:59 Last Admin: 08/23/18 08:24 Dose: 25 mg Levofloxacin (Levaquin Pb) 750 mg in 150 mls @ 100 mls/hr IV Q48H [facility] Stop: 10/21/18 14:59 Last Admin: 08/22/18 16:08 Dose: 100 mls/hr Vancomycin HCl 1 gm/ Sodium (Chloride) 250 mls @ 165 mls/hr IV Q12HR [facility] Stop: 10/21/18 20:59 Last Admin: 08/23/18 08:35 Dose: 165 mls/hr Levothyroxine Sodium (Synthroid) 0.075 mg PO QDAC [facility] Stop: 10/21/18 07:29 Last Admin: 08/23/18 06:34 Dose: 0.075 mg Miscellaneous (Vancomycin Iv Per Pharmacy) 1 ea MC PRN PRN PRN Reason: PROTOCOL Stop: 10/19/18 19:22 Promethazine HCl/Codeine (Phenergan W/Cod Susp) 5 ml PO TID [facility] Stop: 08/23/18 20:59 Last Admin: 08/23/18 08:22 Dose: 5 ml Sodium Phosphate (Fleet Enema) 135 ml RC Q48H PRN PRN Reason: IF DULCOLAX INEFFECTIVE Stop: 10/19/18 20:52 Warfarin Sodium (Coumadin Per Pharmacy) 1 ea MC PRN PRN; Protocol PRN Reason: RX MONITORING Stop: 10/20/18 20:38 General: no acute distress, well developed, well nourished HEENT: atraumatic, normocephalic, PERRLA, EOMI Neck: supple, no thyromegaly Cardiovascular: S1S2, regular Lungs: clear to auscultation bilaterally, clear to percussion Abdomen: soft, bowel sounds, no tender, no distended, no mass, no rebound Extremities: other (right leg swelling and redness.), no cyanosis, no clubbing, no edema Neurological: awake, alert, oriented Skin: intact Infectious Disease Assmt/Plan - Problem List Patient Problems: All Active Problems BILATERAL LOWER EXTREMITY EDEMA/REDNESS (Acute) - Assessment Assessment: 1. Cellulitis of right leg. 2. Obesity. 3. DM2. - Plan Plan: Continue levaquin and vanco. apply steroid cream to the right leg. LTAC eval.
--- NOTE | 2018-08-23 20:28 | Internal Medicine Prog Note ---
Internal Medicine Subjective - Subjective Service Date: 08/23/18 (c/o ble pain) Patient seen and examined:: with staff Patient is:: awake, verbal Per staff patient has:: tolerating meds Internal Medicine Objective - Results Result Diagrams: 08/23/18 06:30 08/23/18 06:30 Recent Labs: Laboratory Last Values WBC 5.1 Th/cmm (4.8-10.8) 08/23/18 06:30 RBC 4.69 Mil/cmm (3.80-5.20) 08/23/18 06:30 Hgb 12.9 gm/dL (12-16) 08/23/18 06:30 Hct 38.0 % (41.0-60) L 08/23/18 06:30 MCV 80.9 fl (81-100) L 08/23/18 06:30 MCH 27.4 pg (27.0-31.0) 08/23/18 06:30 MCHC Differential 33.9 pg (28.0-36.0) 08/23/18 06:30 RDW 12.8 % (11.5-20.0) 08/23/18 06:30 Plt Count 127 Th/cmm (150-400) L 08/23/18 06:30 MPV 6.8 fl 08/23/18 06:30 Neutrophils % 73.4 % (40.0-80.0) 08/23/18 06:30 Lymphocytes % 17.2 % (20.0-50.0) L 08/23/18 06:30 Monocytes % 9.3 % (2.0-10.0) 08/23/18 06:30 Eosinophils % 0.1 % (0.0-5.0) 08/23/18 06:30 Basophils % 0.0 % (0.0-2.0) 08/23/18 06:30 ESR 25 mm/hr (0-30) 08/20/18 17:30 PT 11.6 SECONDS (9.5-11.5) H 08/23/18 06:30 INR 1.13 (0.5-1.4) 08/23/18 06:30 PTT (Actin FS) 28.3 SECONDS (26.0-38.0) 08/22/18 07:00 D-Dimer < 100 ng/mL (100-400) L 08/20/18 17:30 Sodium 139 mEq/L (136-145) 08/23/18 06:30 Potassium 4.2 mEq/L (3.5-5.1) 08/23/18 06:30 Chloride 104 mEq/L (98-107) 08/23/18 06:30 Carbon Dioxide 27.6 mEq/L (21.0-31.0) 08/23/18 06:30 Anion Gap 11.6 (7.0-16.0) 08/23/18 06:30 BUN 21 mg/dL (7-25) 08/23/18 06:30 Creatinine 1.0 mg/dL (0.6-1.2) 08/23/18 06:30 Est GFR ( Amer) > 60.0 ml/min (>90) 08/23/18 06:30 Est GFR (Non-Af Amer) 58.4 ml/min 08/23/18 06:30 BUN/Creatinine Ratio 21.0 08/23/18 06:30 Glucose 194 mg/dL (70-105) H 08/23/18 06:30 Calcium 9.1 mg/dL (8.6-10.3) 08/23/18 06:30 Phosphorus 3.3 mg/dL (2.5-5.0) 08/20/18 17:30 Magnesium 1.8 mg/dL (1.9-2.7) L 08/20/18 17:30 Total Bilirubin 0.6 mg/dL (0.3-1.0) 08/23/18 06:30 AST 19 U/L (13-39) 08/23/18 06:30 ALT 28 U/L (7-52) 08/23/18 06:30 Alkaline Phosphatase 46 U/L (34-104) 08/23/18 06:30 B-Natriuretic Peptide 28.0 pg/mL (5.0-100.0) 08/20/18 17:30 Total Protein 6.1 gm/dL (6.0-8.3) 08/23/18 06:30 Albumin 3.6 gm/dL (3.7-5.3) L 08/23/18 06:30 Globulin 2.5 gm/dL 08/23/18 06:30 Albumin/Globulin Ratio 1.4 (1.0-1.8) 08/23/18 06:30 TSH 12.26 uIU/ml (0.34-5.60) H 08/21/18 05:35 Urine Source CLEAN C 08/20/18 18:34 Urine Color YELLOW 08/20/18 18:34 Urine Clarity CLEAR (CLEAR) 08/20/18 18:34 Urine pH 5.5 (4.6 - 8.0) 08/20/18 18:34 Ur Specific [place] 1.025 (1.005-1.030) 08/20/18 18:34 Urine Protein NEGATIVE mg/dL (NEGATIVE) 08/20/18 18:34 Urine Glucose (UA) NEGATIVE mg/dL (NEGATIVE) 08/20/18 18:34 Urine Ketones NEGATIVE mg/dL (NEGATIVE) 08/20/18 18:34 Urine Blood NEGATIVE (NEGATIVE) 08/20/18 18:34 Urine Nitrate NEGATIVE (NEGATIVE) 08/20/18 18:34 Urine Bilirubin NEGATIVE (NEGATIVE) 08/20/18 18:34 Urine Urobilinogen 0.2 E.U./dL (0.2 - 1.0) 08/20/18 18:34 Ur Leukocyte Esterase NEGATIVE (NEGATIVE) 08/20/18 18:34 Urine RBC NONE SEEN /hpf (0-5) 08/20/18 18:34 Urine WBC 0-2 /hpf (0-5) 08/20/18 18:34 Ur Epithelial Cells FEW /lpf (FEW) 08/20/18 18:34 Urine Bacteria FEW /hpf (NONE SEEN) 08/20/18 18:34 Vancomycin Trough 21.9 ug/mL (5-10) H 08/22/18 07:00 - Physical Exam Vitals and I&O: Vital Signs Temp 97.4 F 08/23/18 15:45 Pulse 70 08/23/18 15:45 Resp 20 08/23/18 16:00 BP 115/58 08/23/18 17:36 Pulse Ox 94 08/23/18 15:45 Intake & Output 08/23/18 08/23/18 08/24/18 06:59 18:59 06:59 Intake Total 920 250 Balance 920 250 Weight (lbs) 268 lb Intake: Intake, IV Amount 250 250 Vancomycin HCl 1 gm In 250 250 Sodium Chloride 0.9% 250 ml @ 165 mls/hr IV Q12HR [facility] Rx#:[id number] Oral 670 Other: # Voids 4 # Bowel Movements 0 Weight Source Bedscale Active Medications: Current Medications Acetaminophen (Tylenol) 650 mg PO Q4HR PRN PRN Reason: MILD PAIN, TEMP > 101F Stop: 10/19/18 21:19 Last Admin: 08/22/18 19:04 Dose: 650 mg Ascorbic Acid (Vitamin C) 500 mg PO DAILY [facility] Stop: 10/20/18 08:59 Last Admin: 08/23/18 08:22 Dose: 500 mg Betamethasone Valerate (Valisone 0.1% Cream) 1 appl TP DAILY [facility] Stop: 10/22/18 08:59 Last Admin: 08/23/18 08:35 Dose: 1 appl Bisacodyl (Dulcolax 10 Mg Supp) 10 mg RC DAILY PRN PRN Reason: IF MOM INEFFECTIVE Stop: 10/19/18 20:50 Docusate Sodium (Colace) 100 mg PO DAILY [facility] Stop: 10/20/18 08:59 Last Admin: 08/23/18 08:35 Dose: 100 mg Hydrochlorothiazide (Hctz) 25 mg PO BID [facility] Stop: 10/20/18 08:59 Last Admin: 08/23/18 17:36 Dose: 25 mg Hydrocortisone (Hydrocortisone 1%) 1 appl TP DAILY [facility] Stop: 10/22/18 16:29 Last Admin: 08/23/18 17:34 Dose: 1 appl Levofloxacin (Levaquin Pb) 750 mg in 150 mls @ 100 mls/hr IV Q48H [facility] Stop: 10/21/18 14:59 Last Admin: 08/22/18 16:08 Dose: 100 mls/hr Vancomycin HCl 1 gm/ Sodium (Chloride) 250 mls @ 165 mls/hr IV Q12HR [facility] Stop: 10/21/18 20:59 Last Infusion: 08/23/18 10:06 Dose: Infused Levothyroxine Sodium (Synthroid) 0.075 mg PO QDAC [facility] Stop: 10/21/18 07:29 Last Admin: 08/23/18 06:34 Dose: 0.075 mg Miscellaneous (Vancomycin Iv Per Pharmacy) 1 ea MC PRN PRN PRN Reason: PROTOCOL Stop: 10/19/18 19:22 Promethazine HCl/Codeine (Phenergan W/Cod Susp) 5 ml PO TID [facility] Stop: 08/23/18 20:59 Last Admin: 08/23/18 17:58 Dose: 5 ml Sodium Phosphate (Fleet Enema) 135 ml RC Q48H PRN PRN Reason: IF DULCOLAX INEFFECTIVE Stop: 10/19/18 20:52 Warfarin Sodium (Coumadin Per Pharmacy) 1 ea MC PRN PRN; Protocol PRN Reason: RX MONITORING Stop: 10/20/18 20:38 Internal Medicine Assmt/Plan - Assessment Assessment: right lower ext cellulitis obesity - Plan Plan: ivabx as per id to cont ble u/s am labs ltac eval pending
[2018-08-24] MEDS: Levothyroxine 0.075 Mg Tab PO SCH (06:45)
[2018-08-24 06:58] LABS: % BASOPHILS 0.2 % (0.0-2.0); % EOSINOPHILS 0.1 % (0.0-5.0); % LYMPHOCYTES 18.3 % (20.0-50.0); % MONOCYTES 8.6 % (2.0-10.0); % NEUTROPHILS 72.8 % (40.0-80.0); HEMATOCRIT 37.4 % (41.0-60); HEMOGLOBIN 12.3 gm/dL (12-16); LYMPHOCYTE ABSOLUTE 0.9 Th/cmm (1.5-3.0); MEAN CELL VOLUME 81.7 fl (81-100); MEAN PLATELET VOLUME 6.7 fl; MONOCYTE ABSOLUTE 0.4 Th/cmm (0.3-1.0); NEUTROPHILE ABSOLUTE 3.4 Th/cmm (1.8-8.0); PLATELET COUNT 146 Th/cmm (150-400); RED BLOOD COUNT 4.57 Mil/cmm (3.80-5.20); RED CELL DISTRIBUTION WIDTH 12.7 % (11.5-20.0); WHITE BLOOD COUNT 4.7 Th/cmm (4.8-10.8)
[2018-08-24 07:14] LABS: INR 1.15 (0.5-1.4); PROTHROMBIN TIME (TEST) 11.9 SECONDS (9.5-11.5)
[2018-08-24 07:23] LABS: ANION GAP 12.7 (7.0-16.0); BUN - UREA NITROGEN 26 mg/dL (7-25); CALCIUM SERUM 8.8 mg/dL (8.6-10.3); CARBON DIOXIDE 26.7 mEq/L (21.0-31.0); CHLORIDE 103 mEq/L (98-107); GFR AFRICAN-AMERICAN > 60.0 ml/min (>90); GFR NON AFRICAN-AMERICAN 58.4 ml/min; GLUCOSE 184 mg/dL (70-105); POTASSIUM SERUM 4.4 mEq/L (3.5-5.1); SODIUM SERUM 138 mEq/L (136-145)
--- NOTE | 2018-08-24 13:21 | Diagnostic Imaging Report ---
Bilateral lower extremity DVT study HISTORY: Bilateral lower chimney edema. COMPARISON: None Technique: Longitudinal and transverse sonographic images of the bilateral lower extremity veins were obtained with doppler analysis. FINDINGS: There is normal compressibility, augmentation and phasicity of the bilateral common femoral, superficial femoral, popliteal, and posterior tibial veins. No thrombus is visualized. Note the peroneal veins are not visualized. Diffuse subcutaneous edema is noted. IMPRESSION: No evidence of thrombus within the bilateral lower extremity veins. Note the peroneal veins are not able to be visualized. Diffuse lower extremity subcutaneous edema is noted.
[2018-08-24] MEDS: Levofloxacin IVPB 750mg/150mL Premix Bag IV SCH (15:02)
--- NOTE | 2018-08-24 18:43 | Internal Medicine Prog Note ---
Internal Medicine Subjective - Subjective Service Date: 08/24/18 Patient is:: awake, verbal Per staff patient has:: tolerating meds Internal Medicine Objective - Results Result Diagrams: 08/24/18 06:44 08/24/18 06:44 Recent Labs: Laboratory Last Values WBC 4.7 Th/cmm (4.8-10.8) L 08/24/18 06:44 RBC 4.57 Mil/cmm (3.80-5.20) 08/24/18 06:44 Hgb 12.3 gm/dL (12-16) 08/24/18 06:44 Hct 37.4 % (41.0-60) L 08/24/18 06:44 MCV 81.7 fl (81-100) 08/24/18 06:44 MCH 27.0 pg (27.0-31.0) 08/24/18 06:44 MCHC Differential 33.0 pg (28.0-36.0) 08/24/18 06:44 RDW 12.7 % (11.5-20.0) 08/24/18 06:44 Plt Count 146 Th/cmm (150-400) L 08/24/18 06:44 MPV 6.7 fl 08/24/18 06:44 Neutrophils % 72.8 % (40.0-80.0) 08/24/18 06:44 Lymphocytes % 18.3 % (20.0-50.0) L 08/24/18 06:44 Monocytes % 8.6 % (2.0-10.0) 08/24/18 06:44 Eosinophils % 0.1 % (0.0-5.0) 08/24/18 06:44 Basophils % 0.2 % (0.0-2.0) 08/24/18 06:44 ESR 25 mm/hr (0-30) 08/20/18 17:30 PT 11.9 SECONDS (9.5-11.5) H 08/24/18 06:44 INR 1.15 (0.5-1.4) 08/24/18 06:44 PTT (Actin FS) 28.3 SECONDS (26.0-38.0) 08/22/18 07:00 D-Dimer < 100 ng/mL (100-400) L 08/20/18 17:30 Sodium 138 mEq/L (136-145) 08/24/18 06:44 Potassium 4.4 mEq/L (3.5-5.1) 08/24/18 06:44 Chloride 103 mEq/L (98-107) 08/24/18 06:44 Carbon Dioxide 26.7 mEq/L (21.0-31.0) 08/24/18 06:44 Anion Gap 12.7 (7.0-16.0) 08/24/18 06:44 BUN 26 mg/dL (7-25) H 08/24/18 06:44 Creatinine 1.0 mg/dL (0.6-1.2) 08/24/18 06:44 Est GFR ( Amer) > 60.0 ml/min (>90) 08/24/18 06:44 Est GFR (Non-Af Amer) 58.4 ml/min 08/24/18 06:44 BUN/Creatinine Ratio 26.0 08/24/18 06:44 Glucose 184 mg/dL (70-105) H 08/24/18 06:44 Calcium 8.8 mg/dL (8.6-10.3) 08/24/18 06:44 Phosphorus 3.3 mg/dL (2.5-5.0) 08/20/18 17:30 Magnesium 1.8 mg/dL (1.9-2.7) L 08/20/18 17:30 Total Bilirubin 0.6 mg/dL (0.3-1.0) 08/23/18 06:30 AST 19 U/L (13-39) 08/23/18 06:30 ALT 28 U/L (7-52) 08/23/18 06:30 Alkaline Phosphatase 46 U/L (34-104) 08/23/18 06:30 B-Natriuretic Peptide 28.0 pg/mL (5.0-100.0) 08/20/18 17:30 Total Protein 6.1 gm/dL (6.0-8.3) 08/23/18 06:30 Albumin 3.6 gm/dL (3.7-5.3) L 08/23/18 06:30 Globulin 2.5 gm/dL 08/23/18 06:30 Albumin/Globulin Ratio 1.4 (1.0-1.8) 08/23/18 06:30 TSH 12.26 uIU/ml (0.34-5.60) H 08/21/18 05:35 Urine Source CLEAN C 08/20/18 18:34 Urine Color YELLOW 08/20/18 18:34 Urine Clarity CLEAR (CLEAR) 08/20/18 18:34 Urine pH 5.5 (4.6 - 8.0) 08/20/18 18:34 Ur Specific [place] 1.025 (1.005-1.030) 08/20/18 18:34 Urine Protein NEGATIVE mg/dL (NEGATIVE) 08/20/18 18:34 Urine Glucose (UA) NEGATIVE mg/dL (NEGATIVE) 08/20/18 18:34 Urine Ketones NEGATIVE mg/dL (NEGATIVE) 08/20/18 18:34 Urine Blood NEGATIVE (NEGATIVE) 08/20/18 18:34 Urine Nitrate NEGATIVE (NEGATIVE) 08/20/18 18:34 Urine Bilirubin NEGATIVE (NEGATIVE) 08/20/18 18:34 Urine Urobilinogen 0.2 E.U./dL (0.2 - 1.0) 08/20/18 18:34 Ur Leukocyte Esterase NEGATIVE (NEGATIVE) 08/20/18 18:34 Urine RBC NONE SEEN /hpf (0-5) 08/20/18 18:34 Urine WBC 0-2 /hpf (0-5) 08/20/18 18:34 Ur Epithelial Cells FEW /lpf (FEW) 08/20/18 18:34 Urine Bacteria FEW /hpf (NONE SEEN) 08/20/18 18:34 Vancomycin Trough 27.0 ug/mL (5-10) H 08/24/18 06:44 - Physical Exam Vitals and I&O: Vital Signs Temp 98.7 F 08/24/18 15:51 Pulse 72 08/24/18 15:51 Resp 18 08/24/18 15:51 BP 151/81 08/24/18 15:51 Pulse Ox 99 08/24/18 15:51 Intake & Output 08/23/18 08/24/18 08/24/18 18:59 06:59 18:59 Intake Total 250 250 250 Balance 250 250 250 Intake: Intake, IV Amount 250 250 250 Vancomycin HCl 1 gm In 250 250 Sodium Chloride 0.9% 250 ml @ 165 mls/hr IV Q12HR [facility] Rx#:[id number] Active Medications: Current Medications Acetaminophen (Tylenol) 650 mg PO Q4HR PRN PRN Reason: MILD PAIN, TEMP > 101F Stop: 10/19/18 21:19 Last Admin: 08/22/18 19:04 Dose: 650 mg Ascorbic Acid (Vitamin C) 500 mg PO DAILY POONAM Stop: 10/20/18 08:59 Last Admin: 08/24/18 09:38 Dose: 500 mg Betamethasone Valerate (Valisone 0.1% Cream) 1 appl TP DAILY POONAM Stop: 10/22/18 08:59 Last Admin: 08/24/18 14:00 Dose: Not Given Bisacodyl (Dulcolax 10 Mg Supp) 10 mg RC DAILY PRN PRN Reason: IF MOM INEFFECTIVE Stop: 10/19/18 20:50 Docusate Sodium (Colace) 100 mg PO DAILY POONAM Stop: 10/20/18 08:59 Last Admin: 08/24/18 09:38 Dose: 100 mg Hydrochlorothiazide (Hctz) 25 mg PO BID POONAM Stop: 10/20/18 08:59 Last Admin: 08/24/18 09:41 Dose: Not Given Hydrocortisone (Hydrocortisone 1%) 1 appl TP DAILY POONAM Stop: 10/22/18 16:29 Last Admin: 08/24/18 09:00 Dose: Not Given Levofloxacin (Levaquin Pb) 750 mg in 150 mls @ 100 mls/hr IV Q48H POONAM Stop: 10/21/18 14:59 Last Admin: 08/24/18 15:02 Dose: 100 mls/hr Vancomycin HCl 0.75 gm/ Sodium (Chloride) 250 mls @ 165 mls/hr IV Q12H POONAM Stop: 10/23/18 21:59 Levothyroxine Sodium (Synthroid) 0.075 mg PO QDAC POONAM Stop: 10/21/18 07:29 Last Admin: 08/24/18 06:45 Dose: 0.075 mg Miscellaneous (Vancomycin Iv Per Pharmacy) 1 ea MC PRN PRN PRN Reason: PROTOCOL Stop: 10/19/18 19:22 Sodium Phosphate (Fleet Enema) 135 ml RC Q48H PRN PRN Reason: IF DULCOLAX INEFFECTIVE Stop: 10/19/18 20:52 Warfarin Sodium (Coumadin Per Pharmacy) 1 ea PRN PRN; Protocol PRN Reason: RX MONITORING Stop: 10/20/18 20:38 Internal Medicine Assmt/Plan - Assessment Assessment: right lower ext cellulitis obesity - Plan Plan: ivabx as per id to cont ble u/s am labs ltac eval pending Nutritional Asmnt/Malnutr-PDOC - Dietary Evaluation Malnutrition Findings (Please click <Entered> for more info): Nutritional Asmnt/Malnutrition Start: 08/24/18 16: 40 Text: Status: Complete Freq: Protocol: Document 08/24/18 16:40 [email or web address] (Rec: 08/24/18 16:46 [email or web address]) Nutritional Asmnt/Malnutrition Patient General Information Nutritional Screening Moderate Risk Diagnosis BLE cellulitis Pertinent Medical Hx/Surgical Hx T2DM, lymphoma, lymphedema, obesity, DVT right leg, HTN Subjective Information Pt was about to eat lunch at time of visit. Pt stated she is expecting to discharge, had no requests. PO intake is 100 % per EMR. Current Diet Order/ Nutrition Support no added salt 4gm/2gm na Pertinent Medications vit c, colace, levaquin, synthroid, vancomycin, sodium phosphate Pertinent Labs 08/24 BUN 26, glucose 184 08/23 glucose 194, albumin 3.6 Nutritional Hx/Data Height 5 ft 1 in Height (Calculated Centimeters) 154.9 Current Weight (lbs) 268 lb Weight (Calculated Kilograms) 121.6 Weight (Calculated Grams) 571300.8 [place] Body Weight 105 Body Mass Index (BMI) 50.6 Weight Status Morbidly Obese GI Symptoms GI Symptoms None Last BM not indicated Difficult in: None Food Allergies No Skin Integrity/Comment: BLE cellulitis Current %PO Good (75-100%) Estimated Nutritional Goals BEE in Kcals: Adj wt of IBW Calories/Kcals/Kg 25-30 Kcals Calculated 1117-9368 Protein: Adj wt of IBW Protein g/k Protein Calculated 66 Fluid: ml 6518-2954 (1ml/kcal) Nutritional Problem 1. Problem Problem altered nutrition related labs Etiology hyperglycemia Signs/Symptoms: glucose 184-194 Malnutrition Alert Is there a minimum of two criteria No selected? Query Text:Check all the applicable criteria. A minimum of two criteria are recommended for diagnosis of either severe or non-severe malnutrition. Malnutrition Related to Morbid Obesity Malnutrition related to morbid obesity No Intervention/Recommendation Comments 1. Continue with no added salt 4gm/2gm na diet as ordered. Recommend adding CCHO 60gm due to elevated glucose levels. RN not available at this time, will follow up. 2. Monitor PO intake, wt, labs and skin integrity 3. F/U as moderate risk in 3-5 days Expected Outcomes/Goals Expected Outcomes/Goals 1. PO intake to meet at least 75% of nutritional needs. 2. Wt stability, skin to remain intact, labs to approach WNL. Reviewed by Lynette Mace RD
== END 2018-08-24 17:25 | DRG 603 ==
LOC: ER 17:03 → TELE 19:53
PROVIDERS: ADMIT Internal Medicine; ATTEND Internal Medicine
DX: L03.115 Cellulitis of right lower limb (principal); Z68.43 Body mass index [BMI] 50.0-59.9, adult; E11.9 Type 2 diabetes mellitus without complications; I89.0 Lymphedema, not elsewhere classified; E66.01 Morbid (severe) obesity due to excess calories; E03.9 Hypothyroidism, unspecified; I10 Essential (primary) hypertension; Z88.0 Allergy status to penicillin; Z88.8 Allergy status to other drugs, medicaments and biological substances; Z86.718 Personal history of other venous thrombosis and embolism; Z79.01 Long term (current) use of anticoagulants
CPT/HCPCS: 36415-UA; 80048-TC; 80053-TC; 80202-TC; 81001-TC; 83036-90; 83735-TC; 83880-TC; 84100-TC; 84443-TC; 85025-TC; 85379-TC; 85610-TC; 85652-TC; 85730-TC; 87086-90; 93970-TC-50; J1644; J1956; J2543; J3370; J7040; Z7610